=== PATIENT | female | born 1970 | race Caucasian/White ===

== ENCOUNTER 2018-04-24 11:43 | Outpatient (CLI) | payer MEDICAID ==
[2018-04-24 12:56] LABS: CALCIUM 9.1 mg/dL (8.5-10.3); CREATININE 0.6 mg/dL (0.4-1.0)
[2018-04-24 13:35] LABS: FOLLICLE STIMULATING HORMONE 47.84 mIU/mL
[2018-04-24 13:36] LABS: LUTEINIZING HORMONE 32.09 mIU/mL
== END 2018-04-24 11:44 | disposition home or self-care (01) ==
LOC: LAB 11:43
PROVIDERS: ATTEND Obstetrics & Gynecology
DX: N95.1 Menopausal and female climacteric states (principal)
CPT/HCPCS: 36415; 80048; 82670; 83001; 83002

== ENCOUNTER 2018-05-14 11:45 | Emergency (ER) | payer MEDICAID ==
--- NOTE | 2018-05-14 12:56 | XRAY Report ---
Procedure Date: 05/14/2018 Accession Number: [id number] / [id number] Procedure: XR - Hip w/Pelvis 2-3V LT CPT Code: FULL RESULT: EXAM: LEFT HIP AND PELVIS RADIOGRAPHY EXAM DATE: 05/14/2018 12:43 PM. HISTORY: Injury/pain. COMPARISONS: None. TECHNIQUE: 1 view of the pelvis and 1 view of the hip. FINDINGS: Bones: Normal. No fracture or bone lesion. Joints: Mild bilateral femoroacetabular joint space narrowing, greater on the right. Degenerative changes at the pubic symphysis, mild to moderate. Congruent sacroiliac joints. Soft Tissues: Normal. No soft tissue swelling. IMPRESSION: Normal pelvis and hip radiography. [facility]
--- NOTE | 2018-05-14 13:15 | ED Physician Documentation ---
PD HPI LOWER EXT INJURY - Stated complaint Stated Complaint: LEFT HIP PX - Chief complaint Chief Complaint: Ext Problem - History obtained from History obtained from: Patient - History of Present Illness PD HPI LOW EXT INJURY LOCATION: Left, Hip Type of injury: Other (Did the splits when she slipped on a wet floor.) Where injury occurred: Work Timing - onset: How many weeks ago (3) Timing - details: Still present Worsened by: Moving Similar symptoms before: No diagnosis - Treatment prior to arrival Treatment prior to arrival: ibuprophen and lidocaine patch without relief. - Additional information Additional information: The patient is a 47-year-old female who complains of pain in her left hip. She initially developed pain 3 weeks ago when she slipped on a wet floor at work, causing her to do the "splits." She did not fall to the floor. Her pain became worse 2 days ago after moving a large amount of trash. She denies fever , abdominal pain, dysuria, or urinary incontinence. She does report left sciatic pain radiating to her left knee. She reports history of chronic numbness in her right foot, with no acute change. She has been using ibuprofen as well as lidocaine patch (that was prescribed for her ) without relief. Surgical history: Status post left inguinal hernia repair. Review of Systems Constitutional: denies: Fever Nose: denies: Congestion Throat: denies: Sore throat Cardiac: denies: Chest pain / pressure Respiratory: denies: Dyspnea, Cough GI: denies: Abdominal Pain, Nausea, Vomiting : denies: Dysuria Skin: denies: Rash Musculoskeletal: reports: Back pain (left lower back), Joint pain (left hip). denies: Neck pain Neurologic: reports: Numbness (Reports chronically decreased sensation in her right foot, with no recent change.). denies: Focal weakness, Headache PD PAST MEDICAL HISTORY - Past Medical History Cardiovascular: None Respiratory: None Endocrine/Autoimmune: None - Past Surgical History General: Other (Left inguinal hernia repair) - Present Medications Home Medications: Ambulatory Orders Medication Instructions Recorded Confirmed Cyclobenzaprine [Flexeril] 10 mg PO TID PRN #20 tablet 05/14/18 HYDROcod/ACETAM 5/325 [Harwood 5/325] 1 - 2 ea PO Q6H PRN #20 tablet 05/14/18 - Allergies Allergies/Adverse Reactions: Allergies Allergy/AdvReac Type Severity Reaction Status Date / Time No Known Drug Allergies Allergy Verified 05/14/18 11:54 - Social History Does the pt smoke?: No Smoking Status: Never smoker PD ED PE NORMAL - Vitals Vital signs reviewed: Yes (hypertensive) - General General: Alert and oriented X 3, Well developed/nourished - HEENT HEENT: Atraumatic, EOMI, Moist mucous membranes, Pharynx benign - Neck Neck: Supple, no meningeal sign, No adenopathy - Cardiac Cardiac: RRR - Respiratory Respiratory: No respiratory distress, Clear bilaterally - Abdomen Abdomen: Soft, Non tender - Back Back: No CVA TTP, No spinal TTP, Other (There is tenderness to palpation in the left paralumbar musculature, with associated muscle spasms. Tenderness to palpation over the left sacroiliac joint. No tenderness to palpation along the spinous processes.) - Derm Derm: No rash - Extremities Extremities: No edema, No calf tenderness / cord, Other (Straight leg raise is negative bilaterally.) - Neuro Neuro: Alert and oriented X 3, No motor deficit, No sensory deficit, Other ( Deep tendon reflexes are 2+ and equal bilaterally at the patellar and Achilles tendons.) Results - Vitals Vitals: Oxygen O2 Source Room air - Rads (name of study) left hip with pelvis Radiology: Prelim report reviewed, EMP read contemporaneously, See rad report ( Normal left hip and pelvis radiography.) PD MEDICAL DECISION MAKING - ED course Complexity details: reviewed old records, reviewed results, re-evaluated patient , considered differential, d/w patient ED course: The patient's presentation is most consistent with inflammation of the left sacroiliac joint, with associated spasm of the left paralumbar musculature. There is no indication to suggest epidural abscess, cauda equina syndrome, or spinal stenosis. Her exam is not indicative of a hip fracture, and x-ray of the left hip and pelvis reveals no acute bony abnormality. I discussed with the patient the results of her imaging study, symptomatic treatment and outpatient follow-up, as well as potentially worrisome signs or symptoms that should prompt reevaluation in the emergency department. She is being discharged with prescriptions for Flexeril and for Vicodin, 20 tablets. - Sepsis Event Vital Signs: Oxygen O2 Source Room air Departure - Departure Disposition: 01 Home, Self Care Clinical Impression: Derangement of left sacroiliac joint Condition: Stable Instructions: ED Sacroiliitis Follow-Up: Heide Quinonez DNP [Primary Care Provider] - Prescriptions: Cyclobenzaprine [Flexeril] 10 mg PO TID PRN #20 tablet PRN Reason: Spasms HYDROcod/ACETAM 5/325 [Harwood 5/325] 1 - 2 ea PO Q6H PRN #20 tablet PRN Reason: Pain Comments: Apply ice pack to the sore area intermittently for the next 3 days. You can use ibuprofen, up to 800 mg 3 times daily for its anti-inflammatory effect. You can use Flexeril as prescribed if needed for muscle spasms. You can use Vicodin as prescribed if needed for pain. Let pain be your guide to activity level. Follow up with your primary physician within 2 weeks. Call to schedule an appointment. Return to the emergency department if you develop increasing pain, fever, numbness or weakness in your lower extremities, or otherwise worsening symptoms. Discharge Date/Time: 05/14/18 13:40
[2018-05-14 13:40] VITALS: BP 136/71
== END 2018-05-14 13:40 | disposition home or self-care (01) ==
LOC: ED 11:45
DX: M24.80 Other specific joint derangements of unspecified joint, not elsewhere classified (principal); W18.40XA Slipping, tripping and stumbling without falling, unspecified, initial encounter; Y99.0 Civilian activity done for income or pay
CPT/HCPCS: 99283

== ENCOUNTER 2018-06-27 15:21 | Outpatient (CLI) | payer MEDICAID | END 2018-06-27 15:22 | disposition critical access hospital (66) | LOC: EMS 15:21 | PROVIDERS: ATTEND Surgery | DX: S09.90XA Unspecified injury of head, initial encounter (principal); M53.3 Sacrococcygeal disorders, not elsewhere classified; M79.642 Pain in left hand; W17.89XA Other fall from one level to another, initial encounter; Y92.008 Other place in unspecified non-institutional (private) residence as the place of occurrence of the external cause | CPT/HCPCS: A0425; A0429; A0999 ==

== ENCOUNTER 2018-06-27 15:33 | Emergency (ER) | payer MEDICAID ==
[2018-06-27] MEDS ORDERED: oxyCODONE 5 MG TABLET PO STA (16:44)
--- NOTE | 2018-06-27 17:31 | XRAY Report ---
Reason: Fall, with large coccygeal hematoma, low back pain Procedure Date: 06/27/2018 Accession Number: [id number] / [id number] Procedure: XR - Lumbar Spine 2 View CPT Code: FULL RESULT: EXAM: LUMBOSACRAL SPINE RADIOGRAPHY EXAM DATE: 06/27/2018 05:17 PM. CLINICAL HISTORY: Fall, with large coccygeal hematoma, low back pain. COMPARISONS: None. TECHNIQUE: 2 views. FINDINGS: Alignment: Normal. No spondylolisthesis or scoliosis. Bones: Five [id number] lumbar vertebral bodies are present. No acute fracture. There is a chronic appearing fracture deformity at the sacrococcygeal junction. Disks: Mild L5-S1 disk space narrowing. The remaining intervertebral disk spaces are maintained. Facets: No degenerative changes. Sacroiliac Joints: Unremarkable. Soft Tissues: Status post cholecystectomy. IMPRESSION: 1. No lumbar spine fracture or malalignment. 2. Mild L5-S1 degenerative disk space narrowing. 3. Chronic appearing sacrococcygeal fracture deformity. [facility]
--- NOTE | 2018-06-27 17:48 | ED Physician Documentation ---
PD HPI Fall - Stated complaint Stated Complaint: FALL - Chief complaint Chief Complaint: Trauma Ch/Bk - History obtained from History obtained from: Patient, EMS - History of Present Illness Mechanism of injury: Lost balance Fall distance: Standing position Where injury occurred: Home Timing - onset: Today Injury(ies) location: Head, Back, Left Hand Associated symptoms: No: LOC, Neck pain, Nausea / vomiting - Additional information Additional information: The patient is a 48-year-old female who was standing on an wagon and her garden, reaching for a potted plant, when she fell backwards, landing on her buttocks and hitting her head. She denies loss of consciousness. She complains mostly of buttocks pain. She has been ambulatory since the incident occurred. She prefers not to sit because of the pain associated with pressure on her buttocks. Review of Systems Constitutional: denies: Fever Eyes: denies: Decreased vision Nose: denies: Congestion Cardiac: denies: Chest pain / pressure Respiratory: denies: Dyspnea, Cough GI: denies: Abdominal Pain, Nausea, Vomiting : denies: Incontinent Skin: reports: Laceration (s) (scalp). denies: Rash Musculoskeletal: reports: Back pain (lower back/buttock.). denies: Neck pain Neurologic: reports: Head injury. denies: Focal weakness, Numbness, Headache, LOC PD PAST MEDICAL HISTORY - Past Medical History Past Medical History: Yes Cardiovascular: None Respiratory: None Endocrine/Autoimmune: None, HyPOthyroidism - Past Surgical History Past Surgical History: No General: Other - Present Medications Home Medications: Ambulatory Orders Medication Instructions Recorded Confirmed Cyclobenzaprine [Flexeril] 10 mg PO TID PRN #20 tablet 05/14/18 HYDROcod/ACETAM 5/325 [Piqua 5/325] 1 - 2 ea PO Q6H PRN #20 tablet 05/14/18 Furosemide [Lasix] 20 mg PO 06/27/18 Spironolactone 100 mg PO 06/27/18 oxyCODONE/ACET 5/325 [Percocet 5 1 - 2 tab PO Q4-6H PRN #25 tablet 06/27/18 mg/325 mg] - Allergies Allergies/Adverse Reactions: Allergies Allergy/AdvReac Type Severity Reaction Status Date / Time No Known Drug Allergies Allergy Verified 05/14/18 11:54 - Social History Does the pt smoke?: No Smoking Status: Never smoker Does the pt drink ETOH?: Yes Does the pt have substance abuse?: No - Immunizations Immunizations are current?: Yes - POLST Patient has POLST: No PD ED PE NORMAL - Vitals Vital signs reviewed: Yes (borderline hypertension) - General General: Alert and oriented X 3, Well developed/nourished - HEENT HEENT: PERRL, EOMI, Ears normal, Pharynx benign, Other (There is a 2 cm scalp laceration on the right occipital scalp, and an abrasion on the left occipital scalp. There is no bony step-off palpated, and no significant scalp hematoma.) - Neck Neck: No bony TTP, No JVD, Other (Full cervical range of motion, without tenderness.) - Cardiac Cardiac: RRR - Respiratory Respiratory: No respiratory distress, Clear bilaterally - Abdomen Abdomen: Soft, Non tender - Back Back: No CVA TTP, Other (There is tenderness to palpation over the lower back, mostly in the coccygeal region. There is a hematoma over the upper coccygeal, lower lumbar spine.) - Derm Derm: No rash - Extremities Extremities: Normal ROM s pain, Other (There is mild tenderness to palpation over the volar aspect of the left proximal hand with faint ecchymosis at the base of the thenar eminence. She has full range of motion of all digits against resistance. Distal neurovascular is intact.) - Neuro Neuro: Alert and oriented X 3, No motor deficit, No sensory deficit Results - Vitals Vitals: Oxygen O2 Source Room air - Rads (name of study) LS spine Radiology: Prelim report reviewed, EMP read contemporaneously, See rad report (1) No lumbar spine fracture or malalignment. 2) Mild L5-S1 degenerative disc space narrowing. 3) Chronic appearing sacrococcygeal fracture deformity.) Procedures - Laceration (location) scalp Length in cm: 2 Wound type: Stellate, Into subcut fat Neurovascular status: Sensory intact, Motor intact, Vascular intact Anesthesia: Lidocaine 1% with epi Wound Preparation: Hibiclens, Irrigated copiously NS. No: FB identified Skin layer closure: Rutledge Other: Patient tolerated well, No complications, Neurovascular intact, Tetanus UTD Complexity: Simple PD MEDICAL DECISION MAKING - ED course Complexity details: reviewed results, re-evaluated patient, considered differential, d/w patient ED course: The patient's presentation is significant for fall with injuries involving scalp laceration, sacral contusion with hematoma, and contusion to the left hand. X- rays of the lumbar spine reveals no acute fracture or dislocation, but the radiologist notes a chronic appearing coccygeal fracture. An x-ray of the left hand was ordered, but the patient declined to have it performed. Treatment in the emergency department included repair of scalp laceration with florence, after topical anesthetic and thorough cleaning. Oxycodone 1 tablet was administered orally. She is being discharged with prescriptions for Vicodin, 25 tablets. I discussed with her the expected course of injury, symptomatic treatment and outpatient follow-up, as well as potentially worrisome signs or symptoms that should prompt reevaluation in the emergency department. - Sepsis Event Vital Signs: Oxygen O2 Source Room air Departure - Departure Disposition: 01 Home, Self Care Clinical Impression: Fall Qualifiers: Encounter type: initial encounter Qualified Code(s): W19.XXXA - Unspecified fall, initial encounter Scalp laceration Qualifiers: Encounter type: initial encounter Qualified Code(s): S01.01XA - Laceration without foreign body of scalp, initial encounter Hematoma of sacrum Qualifiers: Encounter type: initial encounter Qualified Code(s): S30.0XXA - Contusion of lower back and pelvis, initial encounter Contusion of left hand Qualifiers: Encounter type: initial encounter Qualified Code(s): S60.222A - Contusion of left hand, initial encounter Condition: Stable Instructions: ED Contusion Back, ED Head Injury Closed, ED Laceration Scalp Stitch Or Stap Follow-Up: Heide Quinonez DNP [Primary Care Provider] - Prescriptions: oxyCODONE/ACET 5/325 [Percocet 5 mg/325 mg] 1 - 2 tab PO Q4-6H PRN #25 tablet PRN Reason: Pain Comments: Apply ice pack to the injured areas intermittently for the next 3 days. You can use Percocet as prescribed if needed for pain. You can also use ibuprofen for its anti-inflammatory effect: 800 mg 3 times daily. Follow-up for removal of florence in about 12 days. Return to the emergency department if you develop markedly increasing pain despite the pain medication, any sign of infection, or otherwise worsening symptoms. Forms: Activity restrictions Discharge Date/Time: 06/27/18 18:14
[2018-06-27 18:07] VITALS: BP 151/90
== END 2018-06-27 18:14 | disposition home or self-care (01) ==
LOC: ED 15:33
DX: S01.01XA Laceration without foreign body of scalp, initial encounter (principal); S30.0XXA Contusion of lower back and pelvis, initial encounter; S00.01XA Abrasion of scalp, initial encounter; S60.222A Contusion of left hand, initial encounter; W17.89XA Other fall from one level to another, initial encounter; Y93.H2 Activity, gardening and landscaping; Y92.007 Garden or yard of unspecified non-institutional (private) residence as the place of occurrence of the external cause
CPT/HCPCS: 12001; 72100; 99283; A9270

== ENCOUNTER 2018-07-13 07:39 | Emergency (ER) | payer MEDICAID ==
--- NOTE | 2018-07-13 08:47 | ED Physician Documentation ---
History of Present Illness - Stated complaint Stated Complaint: STAPLE REMOVAL/SLEEPINESS/BACK PX - Chief complaint Chief Complaint: Heent - Additonal information Additional information: hx from pt and EMR 48 female fell 2 feet injuiring low back and striking head s LOC approx 2 weeks ago seen in ED occiptal lac stapled, low back pelvis imaged and no new injuries identified pt back to ED to have staple removed she states she doesnt feel right, she has headaches and is confused she does not think it is due to the percocet she was prescribed she has cirrhoiss but states her amonnia was checked within last few weeks and was fine and dshe does not think it needs to be rechecked today she denies EtOH at time of fall or since she reports balance issues and falls for about a year she has not seen PMD about this Review of Systems Constitutional: denies: Fever, Chills Cardiac: denies: Chest pain / pressure Respiratory: denies: Dyspnea GI: denies: Vomiting : denies: Now EGA (denies s/p hyst) Musculoskeletal: reports: Neck pain, Back pain Neurologic: reports: Headache, Head injury. denies: Focal weakness Endocrine: denies: Easy bruising / bleeding Immunocompromised: denies: Immunocompromised PD PAST MEDICAL HISTORY - Past Medical History Past Medical History: Yes Cardiovascular: None Respiratory: None Endocrine/Autoimmune: None, HyPOthyroidism - Past Surgical History Past Surgical History: No General: Other - Present Medications Home Medications: Ambulatory Orders Medication Instructions Recorded Confirmed Furosemide [Lasix] 40 mg PO BID 06/27/18 07/13/18 Spironolactone 200 mg PO DAILY 06/27/18 07/13/18 Fluoxetine HCl 20 mg PO DAILY 07/13/18 07/13/18 Levothyroxine Sodium 88 mcg PO QDAC 07/13/18 07/13/18 Omeprazole 20 mg PO QDAC 07/13/18 07/13/18 Potassium Chloride [Klor-Con 8] 8 meq PO DAILY 07/13/18 07/13/18 - Allergies Allergies/Adverse Reactions: Allergies Allergy/AdvReac Type Severity Reaction Status Date / Time No Known Drug Allergies Allergy Verified 07/13/18 07:46 - Social History Does the pt smoke?: No Smoking Status: Never smoker Does the pt drink ETOH?: Yes Does the pt have substance abuse?: No - Immunizations Immunizations are current?: Yes - POLST Patient has POLST: No PD ED PE NORMAL - Vitals Vital signs reviewed: Yes - General General: Alert and oriented X 3 - HEENT HEENT: PERRL, Other (3 florence well healed lac) - Neck Neck: No bony TTP - Cardiac Cardiac: RRR - Respiratory Respiratory: No respiratory distress, Clear bilaterally - Extremities Extremities: Other (no hematoma now) - Neuro Neuro: Alert and oriented X 3, client relations associate 2-12 intact, No motor deficit, No sensory deficit, Normal speech, Other (sleept, asks question repetitively - 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 Hip flex knee ext foot dorsi plantar and great toe ext 5/5, neg SLR, no clonus) Eye Opening: Spontaneous Motor: Obeys Commands Verbal: Oriented GCS Score: 15 Results - Vitals Vitals: Vital Signs - 24 hr 07/13/18 07:42 Temperature 35.9 C L Heart Rate 81 Respiratory 17 Rate Blood Pressure 151/66 H O2 Saturation 96 Oxygen O2 Source Room air - Rads (name of study) CTH Radiology: See rad report (no acute) PD MEDICAL DECISION MAKING - ED course ED course: pt smelled of alcohol I asked if she had been drinking and she denied I suggested we check ammonia level and she declined she felt JOHNSON and AMS only since DE I ordered a CT she went out to her car tech went to check on her and found her in her car drinking alcohol from the bottle when she came back i went and talked to her about her EtOH abuse she states she drinks for a variety of reasons mostly due to her chronic pain (she is frustrated because she has moved from [place] and found that local providers are not prescribing pain medications, I suggested she ask for a referral to a production painter) she declines resources such as AA she declines to meet with the she did agree to call for a ride home pt with JOHNSON and AMS after DE GCS 15 and now 2 weeks out would not normally CTH but has liver dz, has not had any liver fup for > 6 months (no INR plt count etc), at risk for subdural - so got CTH all neg pt dced and instructed not to drive Departure - Departure Disposition: 01 Home, Self Care Clinical Impression: Alcohol abuse, Removal of florence Concussion Qualifiers: Encounter type: subsequent encounter Loss of consciousness presence/duration: without LOC Qualified Code(s): S06.0X0D - Concussion without loss of consciousness, subsequent encounter Instructions: ED Concussion Follow-Up: Heide Quinonez DNP [Primary Care Provider] - Comments: Your labs were fine - the ammonia was [address] scan was fine - no skull fracture or brain bleed You need to talk to your primary care doctor about referral to a liver specialist and a pain specialist Avoid alcohol and any medications containing tylenol (such as percocet) Do not drink and drive I recommend you not drive home - you have been drinking and worked all night and are tired and drowsy - please have someone come pick you up - you live close enough to easily walk back and picker and packer the car after you have had some sleep Discharge Date/Time: 07/13/18 11:31
[2018-07-13] MEDS ORDERED: LIDOCAINE PATCH 5% TOP PRN (09:09)
--- NOTE | 2018-07-13 09:53 | CT Report ---
Reason: JOHNSON AMS 2 wk s/p CHI Procedure Date: 07/13/2018 Accession Number: [id number] / [id number] Procedure: CT - Head W/O CPT Code: FULL RESULT: EXAM: CT HEAD EXAM DATE: 07/13/2018 09:32 AM. CLINICAL HISTORY: JOHNSON AMS 2 wk s/p CHI. COMPARISON: None. TECHNIQUE: Multiaxial CT images were obtained from the foramen magnum to the vertex. Reformats: Sagittal and coronal. IV contrast: None. In accordance with CT protocol optimization, one or more of the following dose reduction techniques were utilized for this exam: automated exposure control, adjustment of mA and/or KV based on patient size, or use of iterative reconstructive technique. FINDINGS: Parenchyma: No intraparenchymal hemorrhage. No evidence of mass, midline shift, or CT findings of infarction. Hood-white differentiation is distinct. Extraaxial Spaces: Normal for age. No subdural or epidural collections identified. Ventricles: Normal in size and position. Sinuses and Orbits: Imaged paranasal sinuses, orbits, and mastoids show no significant abnormality. Bones: No evidence of fracture or calvarial defect. Other: None. IMPRESSION: No acute intracranial abnormality. [facility]
[2018-07-13 10:29] LABS: INR 1.1 (0.8-1.2); PT - PROTHROMBIN TIME 12.8 secs (9.9-12.6)
[2018-07-13 11:01] VITALS: BP 140/56
== END 2018-07-13 11:31 | disposition home or self-care (01) ==
LOC: ED 07:39
DX: S01.01XD Laceration without foreign body of scalp, subsequent encounter (principal); S06.0X0D Concussion without loss of consciousness, subsequent encounter; W17.89XD Other fall from one level to another, subsequent encounter; F10.10 Alcohol abuse, uncomplicated; E03.9 Hypothyroidism, unspecified; K76.9 Liver disease, unspecified
CPT/HCPCS: 36415; 70450; 82140; 85049; 85610; 99282; 99283; A9270

== ENCOUNTER 2018-11-25 15:50 | Outpatient (CLI) | payer MEDICAID ==
[2018-11-25 16:21] LABS: BASOPHILS % (AUTO) 0.9 %; EOSINOPHILS % (AUTO) 0.9 %; HGB - HEMOGLOBIN 13.6 g/dL (12.0-16.0); LYMPHOCYTES # (AUTO) 0.7 10^3/uL (1.5-3.5); LYMPHOCYTES % (AUTO) 21.4 %; MEAN CORPUSCULAR HEMOGLOBIN 28.9 pg (27.0-31.0); MEAN CORPUSCULAR HGB CONC 32.7 g/dL (32.0-36.0); MEAN CORPUSCULAR VOLUME 88.3 fL (81.0-99.0); MEAN PLATELET VOLUME 8.2 fL (7.9-10.8); MONOCYTES # (AUTO) 0.4 10^3/uL (0.0-1.0); MONOCYTES % (AUTO) 11.4 %; NEUTROPHILS # (AUTO) 2.1 10^3/uL (1.5-6.6); NEUTROPHILS % (AUTO) 65.4 %; PLT - PLATELET COUNT 142 10^3/uL (130-450); RED CELL DISTRIBUTION WIDTH 16.1 % (12.0-15.0); WHITE BLOOD COUNT 3.2 x10^3/uL (4.8-10.8)
[2018-11-25 16:40] LABS: ALBUMIN/GLOBULIN RATIO 0.9 (1.0-2.2); ALKALINE PHOSPHATASE 112 IU/L (42-121); ALT ALANINE AMINOTRANSFERASE 20 IU/L (10-60); AST ASPARTATE AMINOTRANSFERASE 33 IU/L (10-42); BILIRUBIN,TOTAL 1.5 mg/dL (0.2-1.0); BUN - BLOOD UREA NITROGEN 8 mg/dL (6-20); CALCIUM 9.1 mg/dL (8.5-10.3); CARBON DIOXIDE - CO2 26 mmol/L (21-32); CHLORIDE 99 mmol/L (101-111); CHOL/HDL RATIO 2.3 (<4.4); CHOLESTEROL 154 mg/dL; CREATININE 0.6 mg/dL (0.4-1.0); GFR - MDRD 106 (>89); GLUCOSE 122 mg/dL (70-100); HDL CHOLESTEROL 67 mg/dL; LDL CHOLESTEROL,CALCULATED 76 mg/dL; LDL/HDL RATIO 1.1 (<4.4); SODIUM 135 mmol/L (135-145); TOTAL PROTEIN 8.3 g/dL (6.7-8.2); VLDL CHOLESTEROL 11 mg/dL
[2018-11-25 16:50] LABS: THYROID STIMULATING HORMONE < 0.08 uIU/mL (0.34-5.60)
[2018-11-25 17:01] LABS: FOLATE 14.28 ng/mL (5.90 - >24.8)
== END 2018-11-25 15:51 | disposition home or self-care (01) ==
LOC: LAB 15:50
PROVIDERS: ATTEND Nurse Practitioner
DX: E53.8 Deficiency of other specified B group vitamins (principal); E03.9 Hypothyroidism, unspecified; I10 Essential (primary) hypertension; E55.9 Vitamin D deficiency, unspecified
CPT/HCPCS: 36415; 80053; 80061; 82306; 82607; 82746; 82747; 83721; 84443; 85025

== ENCOUNTER 2019-03-20 12:49 | Emergency (ER) | payer MEDICAID ==
[2019-03-20 12:59] VITALS: BP 150/94
[2019-03-20] MEDS ORDERED: LIDOCAINE-EPINEPH-TETRACAINE 3 ML SYRINGE TOP STA (13:36)
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
== END 2019-03-20 14:29 | disposition home or self-care (01) ==
LOC: ED 12:49
DX: S01.511A Laceration without foreign body of lip, initial encounter (principal); W20.8XXA Other cause of strike by thrown, projected or falling object, initial encounter; Y93.E6 Activity, residential relocation
CPT/HCPCS: 12051; 99282

== ENCOUNTER 2019-03-21 16:44 | Emergency (ER) | payer MEDICAID ==
[2019-03-21] MEDS ORDERED: IBUPROFEN 800 MG TABLET PO STA (17:11)
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
[2019-03-21 18:16] VITALS: BP 150/98
== END 2019-03-21 18:16 | disposition home or self-care (01) ==
LOC: ED 16:44
DX: S00.83XA Contusion of other part of head, initial encounter (principal); S01.511A Laceration without foreign body of lip, initial encounter; Y04.8XXA Assault by other bodily force, initial encounter
CPT/HCPCS: 70486; 99283; A9270

== ENCOUNTER 2019-03-23 15:05 | Emergency (ER) | payer MEDICAID ==
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
[2019-03-23] MEDS ORDERED: HYDROcod/ACETAM 5/325 MG TABLET PO STA (16:54)
[2019-03-23] MEDS ORDERED: MUPIROCIN 2% OINT 1 GM TOP STA (16:54)
[2019-03-23] MEDS ORDERED: cephALEXin 250 MG CAPSULE PO STA (16:54)
[2019-03-23 17:19] VITALS: BP 164/70
== END 2019-03-23 17:19 | disposition home or self-care (01) ==
LOC: ED 15:05
DX: S01.511A Laceration without foreign body of lip, initial encounter (principal); L08.9 Local infection of the skin and subcutaneous tissue, unspecified; Y04.8XXA Assault by other bodily force, initial encounter
CPT/HCPCS: 99283; A9270

== ENCOUNTER 2019-04-01 15:00 | Emergency (ER) | payer MEDICAID ==
[2019-04-01 15:05] VITALS: BP 136/65
--- NOTE | 2019-04-01 15:12 | ED Physician Documentation ---
PD HPI WOUND RECHECK - Stated complaint Stated Complaint: STITCHES REMOVAL - Chief complaint Chief Complaint: Laceration - Histroy obtained from History obtained from: Patient - History of Present Illness Location: Face (right upper lip) Timing - onset: How many days ago (12) Associated symptoms: No: Fever, Redness, Drainage Recently seen: Emergency Dept (12 days ago) Review of Systems Constitutional: denies: Fever, Chills Neurologic: denies: Focal weakness, Numbness PD PAST MEDICAL HISTORY - Past Medical History Cardiovascular: None Respiratory: None Endocrine/Autoimmune: None, HyPOthyroidism Musculoskeletal: Chronic back pain - Past Surgical History Past Surgical History: No General: Other - Present Medications Home Medications: Ambulatory Orders Medication Instructions Recorded Confirmed Furosemide [Lasix] 40 mg PO BID 06/27/18 03/20/19 Spironolactone 200 mg PO DAILY 06/27/18 03/20/19 Fluoxetine HCl 20 mg PO DAILY 07/13/18 03/20/19 Omeprazole 20 mg PO QDAC 07/13/18 03/20/19 Potassium Chloride [Klor-Con 8] 8 meq PO DAILY 07/13/18 03/20/19 Hydrocodone/Acetaminophen 1 - 2 each PO Q6H PRN #10 tablet 03/21/19 [Hydrocodon-Acetaminophen 5-325] Ibuprofen [Motrin] 800 mg PO Q8H PRN #30 tablet 03/21/19 Cephalexin [Keflex] 500 mg PO TID #20 capsule 03/23/19 Hydrocodone/Acetaminophen [[place] 1 each PO Q6H PRN #15 tablet 03/23/19 5-325 Tablet] Mupirocin 1 applic TP TID #15 g 03/23/19 - Allergies Allergies/Adverse Reactions: Allergies Allergy/AdvReac Type Severity Reaction Status Date / Time No Known Drug Allergies Allergy Verified 04/01/19 15:06 - Social History Does the pt smoke?: No Smoking Status: Never smoker Does the pt drink ETOH?: Yes Does the pt have substance abuse?: No - Immunizations Immunizations are current?: Yes - POLST Patient has POLST: No PD ED PE NORMAL - Vitals Vital signs reviewed: Yes - General General: Alert and oriented X 3, No acute distress, Well developed/nourished - HEENT HEENT: Other (Right upper lip has 4 sutures intact without any signs of infection to it. The wound appears well-healing and the vermilion border is good contour. Sutures are removed by me without complications.) Results - Vitals Vitals: Vital Signs - 24 hr 04/01/19 15:02 Temperature 36.5 C Heart Rate 68 Respiratory 16 Rate Blood Pressure 136/65 H O2 Saturation 97 Oxygen O2 Source Room air PD MEDICAL DECISION MAKING - ED course Complexity details: considered differential (Well healing without infection.), d/w patient Departure - Departure Disposition: 01 Home, Self Care Clinical Impression: Encounter for removal of sutures Condition: Stable Record reviewed to determine appropriate education?: Yes
== END 2019-04-01 15:40 | disposition home or self-care (01) ==
LOC: ED 15:00
DX: S01.511D Laceration without foreign body of lip, subsequent encounter (principal); X58.XXXD Exposure to other specified factors, subsequent encounter; Z48.02 Encounter for removal of sutures
CPT/HCPCS: 99281; 99283

== ENCOUNTER 2019-09-14 13:43 | Emergency (ER) | payer SELFPAY ==
--- NOTE | 2019-09-14 15:34 | XRAY Report ---
Reason: fall Procedure Date: 09/14/2019 Accession Number: [id number] / [id number] Procedure: XR - Hip w/Pelvis 2-3V LT CPT Code: Final Report FULL RESULT: EXAM: LEFT HIP RADIOGRAPHY EXAM DATE: 09/14/2019 03:08 PM. CLINICAL HISTORY: Fall. COMPARISON: HIP W/PELVIS 2-3V LT 05/14/2018 12:32 PM. TECHNIQUE: 2 views. FINDINGS: Bones: No acute fracture. No suspicious osseous lesion. Joints: No significant joint space narrowing. No dislocation. Other: None. IMPRESSION: No acute osseous abnormality. RADIA
--- NOTE | 2019-09-14 16:29 | ED Physician Documentation ---
PD HPI LOWER EXT INJURY - Stated complaint Stated Complaint: GLF - Chief complaint Chief Complaint: Ext Problem - History obtained from History obtained from: Patient - History of Present Illness PD HPI LOW EXT INJURY LOCATION: Left, Hip Type of injury: Fall Where injury occurred: Home Timing - onset: How many weeks ago (2) Timing - duration: Weeks (2) Timing - details: Gradual onset Pain level max: 7 Pain level now: 6 Improved by: Rest, Ice Worsened by: Moving, Palpating Associated symptoms: Swelling, Discolored (bruising). No: Weakness, Numbness, Tingling Contributing factors: No: Anticoagulated - Additional information Additional information: 49-year-old female presents to the emergency department after falling on the left hip 2 weeks ago. Review of Systems Constitutional: denies: Fever, Chills Cardiac: denies: Chest pain / pressure Respiratory: denies: Cough GI: denies: Vomiting, Diarrhea Musculoskeletal: denies: Neck pain, Back pain Neurologic: denies: Head injury PD PAST MEDICAL HISTORY - Past Medical History Cardiovascular: None Respiratory: None Endocrine/Autoimmune: None, HyPOthyroidism Musculoskeletal: Chronic back pain - Past Surgical History Past Surgical History: No General: Other - Present Medications Home Medications: Ambulatory Orders Medication Instructions Recorded Confirmed Furosemide [Lasix] 40 mg PO BID 06/27/18 03/20/19 Spironolactone 200 mg PO DAILY 06/27/18 03/20/19 Fluoxetine HCl 20 mg PO DAILY 07/13/18 03/20/19 Omeprazole 20 mg PO QDAC 07/13/18 03/20/19 Potassium Chloride [Klor-Con 8] 8 meq PO DAILY 07/13/18 03/20/19 Hydrocodone/Acetaminophen 1 - 2 each PO Q6H PRN #10 tablet 03/21/19 [Hydrocodon-Acetaminophen 5-325] Ibuprofen [Motrin] 800 mg PO Q8H PRN #30 tablet 03/21/19 Cephalexin [Keflex] 500 mg PO TID #20 capsule 03/23/19 Hydrocodone/Acetaminophen [[place] 1 each PO Q6H PRN #15 tablet 03/23/19 5-325 Tablet] Mupirocin 1 applic TP TID #15 g 03/23/19 Hydrocodone/Acetaminophen 1 - 2 each PO Q6H PRN #14 tablet 09/14/19 [Hydrocodon-Acetaminophen 5-325] - Allergies Allergies/Adverse Reactions: Allergies Allergy/AdvReac Type Severity Reaction Status Date / Time No Known Drug Allergies Allergy Verified 04/01/19 15:06 - Social History Does the pt smoke?: No Smoking Status: Never smoker Does the pt drink ETOH?: Yes Does the pt have substance abuse?: No - Immunizations Immunizations are current?: Yes - POLST Patient has POLST: No PD ED PE NORMAL - Vitals Vital signs reviewed: Yes - General General: Alert and oriented X 3, No acute distress - HEENT HEENT: Moist mucous membranes - Neck Neck: Supple, no meningeal sign - Derm Derm: Warm and dry - Extremities Extremities: No deformity, No tenderness to palpate, Other (Hematoma to the left buttock. Tender to palpation. No deformity.) Results - Vitals Vitals: Vital Signs - 24 hr 09/14/19 09/14/19 14:09 16:32 Temperature 36.7 C Heart Rate 73 64 Respiratory 18 18 Rate Blood Pressure 115/68 136/51 H O2 Saturation 97 100 Oxygen O2 Source Room air - Rads (name of study) L hip xray Radiology: Prelim report reviewed, EMP read contemporaneously, See rad report (Normal) PD MEDICAL DECISION MAKING - ED course Complexity details: reviewed results, re-evaluated patient, considered differential, d/w patient ED course: Patient presents to the emergency department with what appears to be a left buttock hematoma. No evidence of infection. Will compress with Kieran bandages. Will use heat and ice at home. I will prescribe pain medication for home. No acute radiographic findings. Not tender over the bones of the spine, hip, femur. Ambulating well. Patient counseled regarding signs and symptoms for which I believe and urgent re-evaluation would be necessary. Patient with good understanding of and agreement to plan and is comfortable going home at this time This document was made in part using voice recognition software. While efforts are made to proofread this document, sound alike and grammatical errors may occur. Departure - Departure Disposition: 01 Home, Self Care Clinical Impression: Contusion of buttock Qualifiers: Encounter type: initial encounter Qualified Code(s): S30.0XXA - Contusion of lower back and pelvis, initial encounter Condition: Good Instructions: ED Hematoma Follow-Up: your,doctor in 1 week [Other] Prescriptions: Hydrocodone/Acetaminophen [Hydrocodon-Acetaminophen 5-325] 1 - 2 each PO Q6H PRN #14 tablet PRN Reason: pain Comments: Return if you worsen. Follow up with your doctor for further care. Do not drink alcohol or drive while on narcotic pain medicine. Note that many narcotic pain relievers also contain tylenol/acetaminophen. Please ensure that your total dose of acetaminophen from all sources does not exceed 3 grams (3000mg) per day. You may constipated on this medication, take a stool softener such as "Colace" twice a day while you are on it. Also recommend a [id number]-aik-[id number] laxative such as senna or MiraLAX any day that you do not have a bowel movement. If you received narcotic pain medication in the emergency department, do not drive or operate machinery for the next 24 hours. Discharge Date/Time: 09/14/19 16:46
[2019-09-14 16:33] VITALS: BP 136/51
== END 2019-09-14 16:46 | disposition home or self-care (01) ==
LOC: ED 13:43
DX: S30.0XXA Contusion of lower back and pelvis, initial encounter (principal); M25.552 Pain in left hip; W01.0XXA Fall on same level from slipping, tripping and stumbling without subsequent striking against object, initial encounter; Y92.008 Other place in unspecified non-institutional (private) residence as the place of occurrence of the external cause
CPT/HCPCS: 99283; 99284

== ENCOUNTER 2020-04-03 17:08 | Emergency (ER) | payer MEDICAID ==
[2020-04-03] MEDS ORDERED: MECLIZINE 12.5 MG TABLET PO STA (17:28)
--- NOTE | 2020-04-03 17:41 | ED Physician Documentation ---
PD HPI ALTERED MENTAL STATUS - Stated complaint Stated Complaint: DIZZY, SORE THROAT, EAR PAIN - Chief complaint Chief Complaint: Neuro - History obtained from History obtained from: Patient - Additional information Additional information: 49-year-old woman with history of alcoholic cirrhosis presents with dizziness, sore throat and ear pain for the last couple of days. History is somewhat vague because of current intoxication. She admits to drinking "2 beers" prior to arrival. With some prompting she does admit to vertigo. She says she had a couple of years ago and went away on its own but then says at the time she was hospitalized for 4 days on a ventilator. Review of Systems Unable to obtain: Intoxicated PD PAST MEDICAL HISTORY - Past Medical History Past Medical History: Yes Cardiovascular: Murmur Respiratory: COPD Neuro: None Endocrine/Autoimmune: None GI: Cirrhosis ACADEMIC GUIDANCE SPECIALIST: None : None HEENT: None Musculoskeletal: None Derm: None - Past Surgical History Past Surgical History: Yes /ACADEMIC GUIDANCE SPECIALIST: Hysterectomy - Present Medications Home Medications: Ambulatory Orders Medication Instructions Recorded Confirmed Fluoxetine HCl [Prozac] 40 mg PO DAILY 04/03/20 04/03/20 Furosemide [Lasix] 20 mg PO DAILY 04/03/20 04/03/20 Spironolactone 100 mg PO DAILY 04/03/20 04/03/20 - Allergies Allergies/Adverse Reactions: Allergies Allergy/AdvReac Type Severity Reaction Status Date / Time No Known Drug Allergies Allergy Verified 04/03/20 17:26 - Social History Does the pt smoke?: No Smoking Status: Never smoker Does the pt drink ETOH?: Yes ETOH Use: Beer Does the pt have substance abuse?: No - Immunizations Immunizations are current?: Yes - POLST Patient has POLST: No PD ED PE NORMAL - Vitals Vital signs reviewed: Yes - General General: Alert and oriented X 3, Other (Slow slurred speech but alert and oriented) - HEENT HEENT: PERRL, EOMI, Other (Nystagmus horizontally in both directions; TMs And oropharynx appear normal.) - Neck Neck: Supple, no meningeal sign, No bony TTP - Cardiac Cardiac: RRR, No murmur - Respiratory Respiratory: No respiratory distress, Clear bilaterally - Abdomen Abdomen: Soft, Non tender - Back Back: No CVA TTP, No spinal TTP - Derm Derm: Normal color, Warm and dry - Extremities Extremities: No deformity, No tenderness to palpate, No edema, No calf tenderness / cord - Neuro Neuro: Alert and oriented X 3, 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 No asterixis.) Results - Vitals Vitals: Vital Signs - 24 hr 04/03/20 17:23 Temperature 37.4 C Heart Rate 83 Respiratory 10 L Rate Blood Pressure 118/94 H O2 Saturation 100 Oxygen O2 Source Room air - Labs Labs: Laboratory Tests 04/03/20 04/03/20 04/03/20 18:03 18:03 18:03 WBC 3.0 L RBC 5.26 Hgb 15.3 Hct 45.6 MCV 86.7 MCH 29.1 MCHC 33.6 RDW 15.8 H Plt Count 128 L MPV 9.6 Manual Slide Review Indicated PT 14.5 H INR 1.3 H Sodium 135 Potassium 3.3 L Chloride 95 L Carbon Dioxide 27 Anion Gap 13.0 BUN < 5 L Creatinine 0.6 Estimated GFR (MDRD) 106 Glucose 108 H Calcium 8.3 L Total Bilirubin 1.1 H AST 103 H ALT 42 Alkaline Phosphatase 145 H Ammonia Total Protein 8.5 H Albumin 4.3 Globulin 4.2 Albumin/Globulin Ratio 1.0 Lipase 42 Ethyl Alcohol 399.4 Group A Strep Rapid 04/03/20 04/03/20 18:03 18:09 WBC RBC Hgb Hct MCV MCH MCHC RDW Plt Count MPV Manual Slide Review PT INR Sodium Potassium Chloride Carbon Dioxide Anion Gap BUN Creatinine Estimated GFR (MDRD) Glucose Calcium Total Bilirubin AST ALT Alkaline Phosphatase Ammonia 20.0 Total Protein Albumin Globulin Albumin/Globulin Ratio Lipase Ethyl Alcohol Group A Strep Rapid Negative - Rads (name of study) CT Head Radiology: EMP read contemporaneously (NAD) PD MEDICAL DECISION MAKING - ED course ED course: 49-year-old woman presents with nonspecific vertigo. Somewhat a difficult evaluation because of intoxication but no clear neurologic deficits other than t hat caused by alcohol which is corroborated by her blood alcohol of 399 despite only having had "2 [address] of the head was normal. Discussed with her options of staying in the hospital for observation and potential MRI tomorrow if still symptomatic versus going home, not drinking, and returning in the morning if still symptomatic and she opted for the latter. With her permission I also updated the who will come and get her and keep an eye on her tonight. She understands the need to quit drinking. Departure - Departure Disposition: 01 Home, Self Care Clinical Impression: Vertigo Alcohol intoxication Qualifiers: Complication of substance-induced condition: uncomplicated Qualified Code(s): F10.920 - Alcohol use, unspecified with intoxication, uncomplicated Condition: Stable Instructions: ED Alcohol Intoxication, ED Vertigo Unspecified Comments: Cass, you need to abstain from alcohol. Your blood alcohol level today was 399. I doubt that your liver will last more than a couple more years if you do not quit drinking. Return anytime for further evaluation and treatment if worse. Follow-up with your primary care physician. You also need specific alcohol abuse treatment, Options include: [facility] in [place], the phone number is [phone] [facility] [address] in [place], the phone number is [phone].
--- NOTE | 2020-04-03 18:03 | CT Report ---
PROCEDURE: HEAD WO INDICATIONS: vertigo, headache TECHNIQUE: Noncontrast 4.5 mm thick angled axial sections acquired from the foramen magnum to the vertex. For r adiation dose reduction, the following was used: automated exposure control, adjustment of mA and/or kV according to patient size. COMPARISON: None. FINDINGS: Image quality: Excellent. CSF spaces: Basal cisterns are patent. No extra-axial fluid collections. Ventricles are normal in size and shape. Brain: No midline shift. No intracranial masses or hemorrhage. Hood-white matter interface is norm al. Skull and face: Calvarium and visualized facial bones are intact, without suspicious lesions. Sinuses: Visualized sinuses and mastoids are clear. IMPRESSION: No evidence acute stroke, hemorrhage, or mass. Reviewed by: Fercho Valenzuela MD on 04/03/2020 5:01 PM KAREN Approved by: Fercho Valenzuela MD on 04/03/2020 5:01 PM KAREN Station ID: [id number]
[2020-04-03 18:12] LABS: BASOPHILS % (AUTO) 0.7 %; EOSINOPHILS % (AUTO) 0.3 %; HGB - HEMOGLOBIN 15.3 g/dL (12.0-16.0); LYMPHOCYTES % (AUTO) 43.1 %; MEAN CORPUSCULAR HEMOGLOBIN 29.1 pg (27.0-31.0); MEAN CORPUSCULAR HGB CONC 33.6 g/dL (32.0-36.0); MEAN CORPUSCULAR VOLUME 86.7 fL (81.0-99.0); MEAN PLATELET VOLUME 9.6 fL (7.9-10.8); MONOCYTES % (AUTO) 12.4 %; NEUTROPHILS % (AUTO) 43.2 %; PLT - PLATELET COUNT 128 10^3/uL (130-450); RED BLOOD COUNT 5.26 10^6/uL (4.20-5.40); RED CELL DISTRIBUTION WIDTH 15.8 % (12.0-15.0)
[2020-04-03 18:17] LABS: ABNORMAL LYMPHS % (MANUAL) 0 %; BAND NEUTROPHILS % (MANUAL) 0 %
[2020-04-03 18:18] LABS: INR 1.3 (0.8-1.2); PT - PROTHROMBIN TIME 14.5 secs (9.9-12.6)
[2020-04-03 18:23] LABS: RAPID STREP SCREEN Negative (Negative)
[2020-04-03 18:26] LABS: ALBUMIN 4.3 g/dL (3.2-5.5); ALKALINE PHOSPHATASE 145 IU/L (42-121); ALT ALANINE AMINOTRANSFERASE 42 IU/L (10-60); AST ASPARTATE AMINOTRANSFERASE 103 IU/L (10-42); BILIRUBIN,TOTAL 1.1 mg/dL (0.2-1.0); BUN - BLOOD UREA NITROGEN < 5 mg/dL (6-20); CALCIUM 8.3 mg/dL (8.5-10.3); CARBON DIOXIDE - CO2 27 mmol/L (21-32); CHLORIDE 95 mmol/L (101-111); CREATININE 0.6 mg/dL (0.4-1.0); GLUCOSE 108 mg/dL (70-100); LIPASE 42 U/L (22-51); SODIUM 135 mmol/L (135-145); TOTAL PROTEIN 8.5 g/dL (6.7-8.2)
[2020-04-03 18:38] LABS: EOSINOPHILS # (MANUAL) 0.2 10^3/uL (0-0.7); LYMPHOCYTES # (MANUAL) 1.4 10^3/uL (1.5-3.5); LYMPHOCYTES % (MANUAL) 46 %; MONOCYTES # (MANUAL) 0.3 10^3/uL (0.0-1.0)
[2020-04-03 18:39] LABS: DIFFERENTIAL COMMENT MANUAL DIFFERENTIAL; PLATELET ESTIMATE, MANUAL NORMAL (130-450,000) (NORMAL); PLATELET MORPHOLOGY NORMAL APPEARANCE (NORMAL); RBC MORPHOLOGY (MULTIPLE) NORMAL APPEARANCE (NORMAL)
[2020-04-03 18:50] VITALS: BP 125/63
== END 2020-04-03 18:56 | disposition home or self-care (01) ==
LOC: MERGE 17:08 → ED 17:08
DX: R42 Dizziness and giddiness (principal); F10.929 Alcohol use, unspecified with intoxication, unspecified; Y90.8 Blood alcohol level of 240 mg/100 ml or more; K70.30 Alcoholic cirrhosis of liver without ascites; Z11.59 Encounter for screening for other viral diseases
CPT/HCPCS: 36415; 70450; 80053; 80320; 81599; 82140; 83690; 85025; 85610; 87070; 87430; 99281; 99284; A9270

== ENCOUNTER 2020-08-05 15:28 | Outpatient (CLI) | payer MEDICAID ==
[2020-08-05 15:50] LABS: BASOPHILS % (AUTO) 0.7 %; EOSINOPHILS % (AUTO) 0.9 %; HGB - HEMOGLOBIN 14.5 g/dL (12.0-16.0); LYMPHOCYTES # (AUTO) 0.8 10^3/uL (1.5-3.5); LYMPHOCYTES % (AUTO) 19.3 %; MEAN CORPUSCULAR HEMOGLOBIN 29.2 pg (27.0-31.0); MEAN CORPUSCULAR HGB CONC 32.4 g/dL (32.0-36.0); MEAN CORPUSCULAR VOLUME 89.9 fL (81.0-99.0); MEAN PLATELET VOLUME 9.8 fL (7.9-10.8); MONOCYTES # (AUTO) 0.5 10^3/uL (0.0-1.0); MONOCYTES % (AUTO) 11.8 %; NEUTROPHILS # (AUTO) 2.8 10^3/uL (1.5-6.6); NEUTROPHILS % (AUTO) 66.8 %; PLT - PLATELET COUNT 141 10^3/uL (130-450); RED BLOOD COUNT 4.97 10^6/uL (4.20-5.40); RED CELL DISTRIBUTION WIDTH 14.8 % (12.0-15.0); WHITE BLOOD COUNT 4.2 x10^3/uL (4.8-10.8)
[2020-08-05 16:03] LABS: ALBUMIN/GLOBULIN RATIO 0.9 (1.0-2.2); ALKALINE PHOSPHATASE 102 IU/L (42-121); ALT ALANINE AMINOTRANSFERASE 18 IU/L (10-60); AST ASPARTATE AMINOTRANSFERASE 31 IU/L (10-42); BILIRUBIN,TOTAL 1.2 mg/dL (0.2-1.0); BUN - BLOOD UREA NITROGEN 13 mg/dL (6-20); CARBON DIOXIDE - CO2 25 mmol/L (21-32); CHLORIDE 100 mmol/L (101-111); CHOL/HDL RATIO 2.4 (<4.4); CHOLESTEROL 168 mg/dL; CREATININE 0.5 mg/dL (0.4-1.0); GLUCOSE 111 mg/dL (70-100); HDL CHOLESTEROL 69 mg/dL; LDL CHOLESTEROL,CALCULATED 88 mg/dL; LDL/HDL RATIO 1.3 (<4.4); SODIUM 137 mmol/L (135-145); TOTAL PROTEIN 8.3 g/dL (6.7-8.2); VLDL CHOLESTEROL 11 mg/dL
== END 2020-08-05 15:29 | disposition home or self-care (01) ==
LOC: LAB 15:28
PROVIDERS: ATTEND Family Medicine
DX: R73.9 Hyperglycemia, unspecified (principal); E03.9 Hypothyroidism, unspecified; I10 Essential (primary) hypertension; K21.9 Gastro-esophageal reflux disease without esophagitis
CPT/HCPCS: 36415; 80053; 80061; 83721; 84443; 85025

== ENCOUNTER 2020-08-24 13:18 | Emergency (ER) | payer MEDICAID ==
[2020-08-24 13:26] VITALS: BP 103/74
--- NOTE | 2020-08-24 13:35 | ED Physician Documentation ---
PD HPI HEENT - Stated complaint Stated Complaint: TOOTH PX - Chief complaint Chief Complaint: Heent - History obtained from History obtained from: Patient - History of Present Illness Timing - onset: How many weeks ago (2) Timing - duration: Weeks (2) Timing - details: Gradual onset, Still present Location: Tooth Improves: Medication Associated symptoms: No: Fever, Congestion, Rhinorrhea, Trismus Similar symptoms before: Diagnosis (abcessed tooth) Recently seen: Not recently seen - Additional information Additional information: 50 y/o female with an abscessed tooth has right lower jaw pain for the past 2 weeks and this has progressed to more pain and more swelling. There are broken teeth that do not hurt and this tooth is intact, hurts and there is swelling at the gum line. Review of Systems Constitutional: denies: Fever Eyes: denies: Decreased vision Ears: denies: Ear pain Nose: denies: Rhinorrhea / runny nose, Congestion Throat: reports: Dental pain / toothache. denies: Sore throat Cardiac: denies: Chest pain / pressure, Palpitations Respiratory: denies: Dyspnea, Cough GI: denies: Vomiting Skin: denies: Rash PD PAST MEDICAL HISTORY - Past Medical History Cardiovascular: None, Murmur Respiratory: None, COPD Neuro: None Endocrine/Autoimmune: HyPOthyroidism, None GI: Cirrhosis PIPING BLOCKER: None : None HEENT: None Musculoskeletal: None, Chronic back pain Derm: None - Past Surgical History Past Surgical History: Yes General: Other /PIPING BLOCKER: Hysterectomy - Present Medications Home Medications: Ambulatory Orders Medication Instructions Recorded Confirmed Furosemide [Lasix] 40 mg PO BID 06/27/18 03/20/19 Spironolactone 200 mg PO DAILY 06/27/18 03/20/19 Fluoxetine HCl 20 mg PO DAILY 07/13/18 03/20/19 Omeprazole 20 mg PO QDAC 07/13/18 03/20/19 Potassium Chloride [Klor-Con 8] 8 meq PO DAILY 07/13/18 03/20/19 Hydrocodone/Acetaminophen 1 - 2 each PO Q6H PRN #10 tablet 03/21/19 [Hydrocodon-Acetaminophen 5-325] Ibuprofen [Motrin] 800 mg PO Q8H PRN #30 tablet 03/21/19 Cephalexin [Keflex] 500 mg PO TID #20 capsule 03/23/19 Hydrocodone/Acetaminophen [[place] 1 each PO Q6H PRN #15 tablet 03/23/19 5-325 Tablet] Mupirocin 1 applic TP TID #15 g 03/23/19 Hydrocodone/Acetaminophen 1 - 2 each PO Q6H PRN #14 tablet 09/14/19 [Hydrocodon-Acetaminophen 5-325] Fluoxetine HCl [Prozac] 40 mg PO DAILY 04/03/20 04/03/20 Furosemide [Lasix] 20 mg PO DAILY 04/03/20 04/03/20 Spironolactone 100 mg PO DAILY 04/03/20 04/03/20 predniSONE [Deltasone] 20 mg PO [id number] #21 tab 04/30/20 Amoxicillin 875 mg PO BID #14 tablet 08/24/20 Oxycodone HCl/Acetaminophen 1 - 2 each PO Q6H PRN #14 tablet 08/24/20 [Percocet 5-325 mg Tablet] - Allergies Allergies/Adverse Reactions: Allergies Allergy/AdvReac Type Severity Reaction Status Date / Time No Known Drug Allergies Allergy Verified 08/24/20 13:26 - Social History Does the pt smoke?: No Smoking Status: Never smoker Does the pt drink ETOH?: Yes Does the pt have substance abuse?: No - Immunizations Immunizations are current?: Yes - POLST Patient has POLST: No PD ED PE NORMAL - Vitals Vital signs reviewed: Yes (normal ) - General General: Alert and oriented X 3, No acute distress, Well developed/nourished - HEENT HEENT: Atraumatic, PERRL, EOMI, Other (There is a loose tooth on the lower right #28 with some swelling and the gingival margin and in the buccal recess that is firm and without fluctuance. 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 She is placed on amoxicillin and referred to Dr. Mccloud Departure - Departure Disposition: 01 Home, Self Care Clinical Impression: Dental abscess Condition: Stable Instructions: ED Abscess Dental Follow-Up: LAURYN KEATING, MSN, MARKETING COPYWRITER [Primary Care Provider] - Colin Mccloud DDS [Provider Admit Priv/Credential] - Prescriptions: Amoxicillin 875 mg PO BID #14 tablet Oxycodone HCl/Acetaminophen [Percocet 5-325 mg Tablet] 1 - 2 each PO Q6H PRN #14 tablet PRN Reason: pain
== END 2020-08-24 13:57 | disposition home or self-care (01) ==
LOC: ED 13:18
DX: K04.7 Periapical abscess without sinus (principal); R68.84 Jaw pain
CPT/HCPCS: 99282; 99284

== ENCOUNTER 2020-09-20 12:22 | Outpatient (CLI) | payer MEDICAID ==
--- NOTE | 2020-09-28 09:17 | Mammography Report ---
BILATERAL DIGITAL SCREENING MAMMOGRAM 3D/2D: 09/20/2020 CLINICAL: Routine screening. No prior exams were available for comparison. The tissue of both breasts is heterogeneously dense. T his may lower the sensitivity of mammography. There is an oval equal density focal asymmetry with an indistinct margin in the left breast at 10 o'c lock middle depth. No other significant masses, calcifications, or other findings are seen in either breast. IMPRESSION: INCOMPLETE: NEEDS ADDITIONAL IMAGING EVALUATION The oval equal density focal asymmetry in the left breast is indeterminate. Mediolateral and spot co mpression views as well as additional views with possible ultrasound are recommended. This exam was interpreted at Station ID: [id number]. NOTE: For mammograms, a report in lay terms will be sent to the patient. Approximately 15% of breast malignancies will not be visualized mammographically. In the management of a palpable breast mass, a negative mammogram must not discourage biopsy of a clinically suspicious lesion. Electronically Signed By: Hernandez Lazcano M.D. ddp/penrad:09/27/2020 13:50:44 ACR BI-RADS Category 0: Incomplete 3340F PARENCHYMAL PATTERN: (D) - The breast(s) demonstrate(s) heterogeneously dense fibroglandular parenchy ma. BI-RADS CATEGORY: (0) - 0 Mammo and US [id number] Immediate follow-up LATERALITY: (B)
== END 2020-09-20 12:23 | disposition home or self-care (01) ==
LOC: DI 12:22
DX: Z12.31 Encounter for screening mammogram for malignant neoplasm of breast (principal); N64.89 Other specified disorders of breast
CPT/HCPCS: 77067

== ENCOUNTER 2020-09-29 | Emergency (ER) | payer MEDICAID | END 2020-09-29 17:45 | disposition left against medical advice (07) | DX: Z53.21 Procedure and treatment not carried out due to patient leaving prior to being seen by health care provider (principal) ==

== ENCOUNTER 2020-09-29 18:06 | Emergency (ER) | payer MEDICAID ==
--- NOTE | 2020-09-29 19:11 | XRAY Report ---
PROCEDURE: Ankle 3 View RT INDICATIONS: R ankle pain, swelling, no injury TECHNIQUE: 3 views of the ankle were acquired. COMPARISON: None FINDINGS: Bones: No fractures or dislocations. Well-defined plantar and dorsal calcaneal enthesophytes are se en. Ankle mortise is normally aligned. No suspicious bony lesions. Soft tissues: No tibiotalar joint effusion. Achilles tendon appears normal. Vascular calcification s are seen scattered in ankle soft tissue. Diffuse ankle soft tissue swelling is noted. IMPRESSION: No ankle fracture or dislocation. Ankle soft tissue swelling. Reviewed by: Les Zapata MD on 09/29/2020 7:10 PM PST Approved by: Les Zapata MD on 09/29/2020 7:10 PM PST Station ID: [id number]
--- NOTE | 2020-09-29 19:12 | XRAY Report ---
PROCEDURE: Foot 3 View RT INDICATIONS: R foot pain, swelling, no injury TECHNIQUE: 3 views of the foot were acquired. COMPARISON: None FINDINGS: Bones: Likely old healed injury involving third proximal phalangeal base with chronic appearing defor mity. No gross acute right foot fracture or dislocation is seen. Forefoot joint osteophytic changes a re noted. No gross bony erosive changes. Well-defined plantar and dorsal calcaneal enthesophytes are seen. No suspicious bony lesions. Soft tissues: No tibiotalar joint effusion. Achilles tendon appears normal. IMPRESSION: Suggestion of old healed injury involving third proximal phalangeal base. No acute right foot fractur e or dislocation. Forefoot joint osteoarthritis. Reviewed by: Les Zapata MD on 09/29/2020 7:11 PM PST Approved by: Les Zapata MD on 09/29/2020 7:11 PM PST Station ID: [id number]
--- NOTE | 2020-09-29 19:23 | ED Physician Documentation ---
History of Present Illness - Stated complaint Stated Complaint: LEG SWELLING - Chief complaint Chief Complaint: Ext Problem - History obtained from History obtained from: Patient - History of Present Illness Timing: How many days ago (several) Pain level max: 2 Pain level now: 2 - Additonal information Additional information: 50-year-old female presents to the emergency department with right ankle and foot swelling. She states that this started after she got a new job at [employer]. Worse with standing or walking, better with rest. No known injury. She also states that she has a chronic dental abscess in her tooth and she has not yet seen a dentist. She is requesting a refill of antibiotics and pain medication. Review of Systems Constitutional: denies: Fever, Chills Skin: denies: Rash Musculoskeletal: denies: Neck pain, Back pain Neurologic: denies: Headache PD PAST MEDICAL HISTORY - Past Medical History Past Medical History: Yes Cardiovascular: Murmur Respiratory: COPD Neuro: None Endocrine/Autoimmune: HyPOthyroidism GI: Cirrhosis TUBE CUTTER: None : None HEENT: None Musculoskeletal: None, Chronic back pain Derm: None - Past Surgical History Past Surgical History: No General: Other /TUBE CUTTER: Hysterectomy - Present Medications Home Medications: Ambulatory Orders Medication Instructions Recorded Confirmed Furosemide [Lasix] 40 mg PO BID 06/27/18 03/20/19 Spironolactone 200 mg PO DAILY 06/27/18 03/20/19 Fluoxetine HCl 20 mg PO DAILY 07/13/18 03/20/19 Omeprazole 20 mg PO QDAC 07/13/18 03/20/19 Potassium Chloride [Klor-Con 8] 8 meq PO DAILY 07/13/18 03/20/19 Hydrocodone/Acetaminophen 1 - 2 each PO Q6H PRN #10 tablet 03/21/19 [Hydrocodon-Acetaminophen 5-325] Ibuprofen [Motrin] 800 mg PO Q8H PRN #30 tablet 03/21/19 Cephalexin [Keflex] 500 mg PO TID #20 capsule 03/23/19 Hydrocodone/Acetaminophen [[place] 1 each PO Q6H PRN #15 tablet 03/23/19 5-325 Tablet] Mupirocin 1 applic TP TID #15 g 03/23/19 Hydrocodone/Acetaminophen 1 - 2 each PO Q6H PRN #14 tablet 09/14/19 [Hydrocodon-Acetaminophen 5-325] Fluoxetine HCl [Prozac] 40 mg PO DAILY 04/03/20 04/03/20 Furosemide [Lasix] 20 mg PO DAILY 04/03/20 04/03/20 Spironolactone 100 mg PO DAILY 04/03/20 04/03/20 predniSONE [Deltasone] 20 mg PO [id number] #21 tab 04/30/20 Amoxicillin 875 mg PO BID #14 tablet 08/24/20 Oxycodone HCl/Acetaminophen 1 - 2 each PO Q6H PRN #14 tablet 08/24/20 [Percocet 5-325 mg Tablet] HYDROcod/ACETAM 5/325 [[place] 5/325] 1 - 2 ea PO Q6H PRN #8 tablet 09/29/20 Penicillin V Potassium 500 mg PO Q6HR #40 tablet 09/29/20 - Allergies Allergies/Adverse Reactions: Allergies Allergy/AdvReac Type Severity Reaction Status Date / Time No Known Drug Allergies Allergy Verified 09/29/20 18:17 - Social History Does the pt smoke?: No Smoking Status: Never smoker Does the pt drink ETOH?: Yes Does the pt have substance abuse?: No - Immunizations Immunizations are current?: Yes - POLST Patient has POLST: No PD ED PE NORMAL - Vitals Vital signs reviewed: Yes - General General: Alert and oriented X 3, No acute distress - HEENT HEENT: Moist mucous membranes, Other (Poor dentition throughout. No drainable abscess. TTP lower right molar) - Neck Neck: Supple, no meningeal sign - Derm Derm: Warm and dry - Extremities Extremities: Other (Soft tissue swelling about the right ankle and right foot. Diffusely tender. No ecchymosis. No sign of injury) - Neuro Neuro: Alert and oriented X 3 - Psych Psych: Normal mood, Normal affect Results - Vitals Vitals: Vital Signs - 24 hr 09/29/20 09/29/20 18:13 19:59 Temperature 36.6 C 36.5 C Heart Rate 84 75 Respiratory 18 18 Rate Blood Pressure 142/76 H 144/60 H O2 Saturation 99 100 Oxygen O2 Source Room air - Rads (name of study) Right ankle x-ray Radiology: Prelim report reviewed, EMP read contemporaneously, See rad report (STS, no bony abnormality) R foot xray Radiology: Prelim report reviewed, EMP read contemporaneously, See rad report (no acute abnormality. ) PD MEDICAL DECISION MAKING - ED course Complexity details: reviewed old records, reviewed results, re-evaluated patient, considered differential, d/w patient ED course: Patient with what appears to be dependent right lower extremity edema. No evidence of DVT. No calf tenderness. No acute findings on x-ray. Ambulating well. Recommend that she wear socks, preferably compression socks at work. She currently does not wear any socks. She should follow-up with her doctor for further care. We will place her back on antibiotics for her tooth. Recommend that she find a dentist soon. Patient counseled regarding signs and symptoms for which I believe and urgent re-evaluation would be necessary. Patient with good understanding of and agreement to plan and is comfortable going home at this time This document was made in part using voice recognition software. While efforts are made to proofread this document, sound alike and grammatical errors may occur. Departure - Departure Disposition: 01 Home, Self Care Clinical Impression: Peripheral edema, Dental caries Condition: Good Instructions: ED Tooth Pain, ED Leg Swelling Unilateral Follow-Up: Your,doctor in 1 week [Other] Prescriptions: Penicillin V Potassium 500 mg PO Q6HR #40 tablet HYDROcod/ACETAM 5/325 [[place] 5/325] 1 - 2 ea PO Q6H PRN #8 tablet PRN Reason: Pain Comments: You need to call your insurance to find out who you can see for dentistry. It is important that you get your teeth taken care of. You should also be wearing socks that go over your calf to help with the swelling in your legs. Compression socks would be best. Do not drink alcohol or drive while on narcotic pain medicine. Note that many narcotic pain relievers also contain tylenol/acetaminophen. Please ensure that your total dose of acetaminophen from all sources does not exceed 3 grams (3000mg) per day. You may constipated on this medication, take a stool softener such as "Colace" twice a day while you are on it. Also recommend a xctd-cid-rbgqoyt laxative such as senna or MiraLAX any day that you do not have a bowel movement. If you received narcotic pain medication in the emergency department, do not drive or operate machinery for the next 24 hours. Discharge Date/Time: 09/29/20 20:00
[2020-09-29 20:00] VITALS: BP 144/60
== END 2020-09-29 20:00 | disposition home or self-care (01) ==
LOC: ED 18:06
DX: K02.9 Dental caries, unspecified (principal); R60.9 Edema, unspecified
CPT/HCPCS: 99283; 99284

== ENCOUNTER 2020-11-01 11:16 | Outpatient (CLI) | payer MEDICAID ==
--- NOTE | 2020-11-02 14:33 | Mammography Report ---
UNILATERAL LEFT DIGITAL DIAGNOSTIC MAMMOGRAM 3D/2D: 11/01/2020 CLINICAL: Additional evaluation requested from prior study. Short term follow up for the left breast. Comparison is made to exam dated: 09/20/2020 mammogram - [facility]. The tissue o f left breast is heterogeneously dense. This may lower the sensitivity of mammography. There is an oval equal density asymmetry with an indistinct and circumscribed margin in the left melissa st middle depth medial region seen on the craniocaudal view. This is less prominent on additional vie ws. There also is an oval low density asymmetry with an indistinct and circumscribed margin in the left b reast middle depth central to the nipple seen on the mediolateral oblique view. This is slightly less prominent. This finding may correlate to the medial finding above but it is not definitive. No other significant masses or calcifications are seen in the breast. IMPRESSION: INCOMPLETE: NEEDS ADDITIONAL IMAGING EVALUATION The oval equal density asymmetry in the left breast middle depth medial region seen on the craniocaud al view is indeterminate. An ultrasound is recommended. The oval low density asymmetry in the left breast middle depth central to the nipple seen on the medi olateral oblique view is indeterminate and may correlate to the medial finding. An ultrasound is rec ommended. Ultrasound will be performed immediately following the current exam. This exam was interpreted at Station ID: [id number]. NOTE: For mammograms, a report in lay terms will be sent to the patient. Approximately 15% of breast malignancies will not be visualized mammographically. In the management of a palpable breast mass, a negative mammogram must not discourage biopsy of a clinically suspicious lesion. Electronically Signed By: Hernandez Lazcano M.D. ddp/:11/01/2020 12:14:01 ACR BI-RADS Category 0: Incomplete 3340F PARENCHYMAL PATTERN: (D) - The breast(s) demonstrate(s) heterogeneously dense fibroglandular parlita goff. BI-RADS CATEGORY: (0) - 0 Ultrasound [id number] Immediate follow-up LATERALITY: (B)
--- NOTE | 2020-11-02 14:33 | Ultrasound Report ---
LIMITED ULTRASOUND OF LEFT BREAST: 11/01/2020 CLINICAL: Patient returns today to evaluate an asymmetry in left breast. Comparison is made to exams dated: 11/01/2020 mammogram and 09/20/2020 mammogram - [facility]. Color flow and real-time ultrasound of the left breast 2-4 o'clock and 8-10 o'clock regions were per formed on the areas of interest. There are multiple benign appearing lymph nodes in the left breast middle depth in the scanned region s. These lymph nodes are of mixed echogenicity with fatty isela. These likely correlate with the michael mography findings. Color flow imaging demonstrates that there is no increase in vascularity. Otherwi se, no suspicous cystic or solid mass lesions are identified to correlate with the mammographic findi ngs. IMPRESSION: BENIGN There is no sonographic evidence of malignancy. The multiple lymph nodes in the left breast are benign. A 1 year screening mammogram is recommended. This exam was interpreted at Station ID: [id number]. Electronically Signed By: Hernandez Lazcano M.D. ddp/:11/01/2020 12:59:06 Ultrasound BI-RADS: 2 Benign BI-RADS CATEGORY: (2) - 2 RECOMMENDATION: (ANNUAL) - Recommend routine annual screening mammography. [id number] 1 year screening LATERALITY: (B)
== END 2020-11-01 11:17 | disposition home or self-care (01) ==
LOC: DI 11:16
PROVIDERS: ATTEND Nurse Practitioner Family
DX: R92.8 Other abnormal and inconclusive findings on diagnostic imaging of breast (principal)

== ENCOUNTER 2020-11-25 08:05 | Outpatient (CLI) | payer MEDICAID ==
--- NOTE | 2020-11-25 09:37 | Ultrasound Report ---
PROCEDURE: Abdomen Limited PROCEDURE: Abdomen Limited INDICATIONS: ALCOHOLIC CIRRHOSIS TECHNIQUE: Real-time scanning was performed of the abdominal and retroperitoneal organs, with image documentatio n. COMPARISON: None. FINDINGS: Liver: Liver is enlarged with steatosis. There is an overall coarsened appearance of the liver. Gallbladder: The gallbladder has been removed. Biliary ducts: Intrahepatic bile ducts are non-dilated. Extrahepatic bile duct caliber measures 4 m m. Normal is 6-7 mm or less in diameter, or 10 mm or less post-cholecystectomy. Pancreas: Visualized portions of the pancreas are sonographically normal. Spleen: Spleen is normal in size and homogeneous in echotexture. Kidneys: Kidneys are normal in size and echotexture. Right kidney measures 13.1 cm long. No hydron ephrosis or nephrolithiasis. No solid masses. Miscellaneous: No ascites is present. IMPRESSION: 1. Hepatomegaly with steatosis. Coarsened appearance of the liver is present consistent with history of cirrhosis. 2. No ascites. Reviewed by: Stephanie Morillo MD on 11/25/2020 8:36 AM [facility] Approved by: Stephanie Morillo MD on 11/25/2020 8:36 AM [facility] Station ID: [id number]
== END 2020-11-25 08:06 | disposition home or self-care (01) ==
LOC: DI 08:05
PROVIDERS: ATTEND Nurse Practitioner Family
DX: K70.30 Alcoholic cirrhosis of liver without ascites (principal)

== ENCOUNTER 2020-12-02 12:05 | Emergency (ER) | payer MEDICAID ==
[2020-12-02] MEDS ORDERED: HYDROcod/ACETAM 5/325 MG TABLET PO STA (12:45)
[2020-12-02] MEDS ORDERED: cefTRIAXone 1 GM VIAL IM STA (12:45)
[2020-12-02] MEDS ORDERED: LIDOCAINE 1% 2 ML VIAL MC ONE (12:45)
--- NOTE | 2020-12-02 12:46 | ED Physician Documentation ---
PD HPI HEENT - Stated complaint Stated Complaint: TOOTH PX - Chief complaint Chief Complaint: Heent - History obtained from History obtained from: Patient - Additional information Additional information: About a week and a half worth of dental pain from the right mandible. She saw her dentist and they prescribed antibiotics and pain medicines but there was a problem at the pharmacy. No fevers. Review of Systems Constitutional: denies: Fever, Chills Nose: denies: Rhinorrhea / runny nose, Congestion Cardiac: denies: Chest pain / pressure, Palpitations Respiratory: denies: Dyspnea, Cough PD PAST MEDICAL HISTORY - Past Medical History Cardiovascular: Murmur Respiratory: COPD Neuro: None Endocrine/Autoimmune: HyPOthyroidism GI: Cirrhosis SURGICAL ELASTIC KNITTER: None : None HEENT: None Musculoskeletal: None, Chronic back pain Derm: None - Past Surgical History Past Surgical History: No General: Other /SURGICAL ELASTIC KNITTER: Hysterectomy - Present Medications Home Medications: Ambulatory Orders Medication Instructions Recorded Confirmed Furosemide [Lasix] 40 mg PO BID 06/27/18 03/20/19 Spironolactone 200 mg PO DAILY 06/27/18 03/20/19 Fluoxetine HCl 20 mg PO DAILY 07/13/18 03/20/19 Omeprazole 20 mg PO QDAC 07/13/18 03/20/19 Potassium Chloride [Klor-Con 8] 8 meq PO DAILY 07/13/18 03/20/19 Hydrocodone/Acetaminophen 1 - 2 each PO Q6H PRN #10 tablet 03/21/19 [Hydrocodon-Acetaminophen 5-325] Ibuprofen [Motrin] 800 mg PO Q8H PRN #30 tablet 03/21/19 Hydrocodone/Acetaminophen [[place] 1 each PO Q6H PRN #15 tablet 03/23/19 5-325 Tablet] Mupirocin 1 applic TP TID #15 g 03/23/19 cephALEXin [Keflex] 500 mg PO TID #20 capsule 03/23/19 Hydrocodone/Acetaminophen 1 - 2 each PO Q6H PRN #14 tablet 09/14/19 [Hydrocodon-Acetaminophen 5-325] Fluoxetine HCl [Prozac] 40 mg PO DAILY 04/03/20 04/03/20 Furosemide [Lasix] 20 mg PO DAILY 04/03/20 04/03/20 Spironolactone 100 mg PO DAILY 04/03/20 04/03/20 predniSONE [Deltasone] 20 mg PO [id number] #21 tab 04/30/20 Amoxicillin 875 mg PO BID #14 tablet 08/24/20 Oxycodone HCl/Acetaminophen 1 - 2 each PO Q6H PRN #14 tablet 08/24/20 [Percocet 5-325 mg Tablet] HYDROcod/ACETAM 5/325 [[place] 5/325] 1 - 2 ea PO Q6H PRN #8 tablet 09/29/20 Penicillin V Potassium 500 mg PO Q6HR #40 tablet 09/29/20 HYDROcod/ACETAM 5/325 [[place] 5/325] 1 - 2 tab PO Q6H PRN #15 tablet 12/02/20 Penicillin V Potassium 500 mg PO Q6HR #40 tablet 12/02/20 - Allergies Allergies/Adverse Reactions: Allergies Allergy/AdvReac Type Severity Reaction Status Date / Time No Known Drug Allergies Allergy Verified 12/02/20 12:19 - Social History Does the pt smoke?: No Smoking Status: Never smoker Does the pt drink ETOH?: Yes Does the pt have substance abuse?: No - Immunizations Immunizations are current?: Yes - POLST Patient has POLST: No PD ED PE NORMAL - Vitals Vital signs reviewed: Yes - General General: Alert and oriented X 3, No acute distress - HEENT HEENT: Other (Carious down to the gumline to the last mandibular molar on the right without trismus or facial swelling. No sublingual swelling.) - Neck Neck: Supple, no meningeal sign, No bony TTP - Neuro Neuro: Alert and oriented X 3, Normal speech Results - Vitals Vitals: Vital Signs - 24 hr 12/02/20 12:16 Temperature 36.0 C L Heart Rate 79 Respiratory 16 Rate Blood Pressure 150/80 H O2 Saturation 99 Oxygen O2 Source Room air Departure - Departure Disposition: 01 Home, Self Care Clinical Impression: Pain due to dental caries Condition: Good Record reviewed to determine appropriate education?: Yes Instructions: ED Tooth Pain Prescriptions: Penicillin V Potassium 500 mg PO Q6HR #40 tablet HYDROcod/ACETAM 5/325 [[place] 5/325] 1 - 2 tab PO Q6H PRN #15 tablet PRN Reason: Pain Comments: It is very important that you follow-up with a dentist. When it comes to dental problems like yours, the emergency department can only offer a short-term solution to your long-term problem. A couple of low cost options for dental care include: [facility] in [place], calls [phone] for an appointment Or [facility] in [place], call [phone] for an appointment.
[2020-12-02 13:18] VITALS: BP 131/60
== END 2020-12-02 13:18 | disposition home or self-care (01) ==
LOC: ED 12:05
DX: K02.9 Dental caries, unspecified (principal)
CPT/HCPCS: 96372; 99283; A9270

== ENCOUNTER 2021-01-04 | Outpatient (CLI) | payer MEDICAID | END 2021-01-04 20:41 | disposition critical access hospital (66) | DX: R46.4 Slowness and poor responsiveness (principal) | CPT/HCPCS: A0425; A0429; A0999 ==

== ENCOUNTER 2021-01-04 20:51 | Emergency (ER) | payer MEDICAID ==
--- NOTE | 2021-01-04 21:43 | ED Physician Documentation ---
History of Present Illness - Stated complaint Stated Complaint: INGESTION/ETOH S/P RECENT SURGERY - Chief complaint Chief Complaint: General - Additonal information Additional information: 50-year-old female presents the emergency department for evaluation of Concerned that she may have accidentally overdosed. The patient underwent oral surgery yesterday in which 2 teeth removed from her right lower jaw. She does have a history of alcohol abuse as well as cirrhosis. Patient reports to me this evening that she took 2 Percocet as well as drink at least 2 beers. However the volume of Percocet that she took is unclear as both the patient and family at home as well as EMS could not find it. On arrival to the emergency department the patient is alert, well-appearing cooperative and in no apparent distress. Per EMS report 911 was called when the could not enter the bathroom where the patient was at. Patient states to me that she locked the door because she wanted to be left alone however the patient's reports that the patient was found passed out in the bathroom. Patient is quite adamant that she has no thoughts of self-harm or harm to others. She does not desire to be in the emergency department. She denies chest pain, shortness of air, abdominal pain, nausea, vomiting black or bloody stools. Review of Systems Constitutional: denies: Fever, Chills Eyes: reports: Reviewed and negative Ears: reports: Reviewed and negative Nose: reports: Reviewed and negative Throat: reports: Dental pain / toothache (Right lower jaw) Cardiac: reports: Reviewed and negative GI: reports: Reviewed and negative : reports: Reviewed and negative Skin: reports: Rash Musculoskeletal: reports: Reviewed and negative Neurologic: reports: Reviewed and negative PD PAST MEDICAL HISTORY - Past Medical History Past Medical History: Yes Cardiovascular: Murmur Respiratory: COPD Neuro: None Endocrine/Autoimmune: HyPOthyroidism GI: Cirrhosis BOTTOM LINER: None : None HEENT: None Musculoskeletal: None, Chronic back pain Derm: None - Past Surgical History Past Surgical History: No General: Other /BOTTOM LINER: Hysterectomy - Present Medications Home Medications: Ambulatory Orders Medication Instructions Recorded Confirmed Spironolactone 200 mg PO DAILY 06/27/18 12/02/20 Fluoxetine HCl [Prozac] 40 mg PO DAILY 04/03/20 12/02/20 Furosemide [Lasix] 40 mg PO DAILY 04/03/20 12/02/20 buPROPion [Wellbutrin Xl] 0 mg DAILY 12/02/20 12/02/20 - Allergies Allergies/Adverse Reactions: Allergies Allergy/AdvReac Type Severity Reaction Status Date / Time No Known Drug Allergies Allergy Verified 01/04/21 20:58 - Social History Does the pt smoke?: No Smoking Status: Never smoker Does the pt drink ETOH?: Yes Does the pt have substance abuse?: No - Immunizations Immunizations are current?: Yes - POLST Patient has POLST: No PD ED PE EXPANDED - General General: Alert, No acute distress, Well developed/nourished, Other (She does smell of alcohol) - HEENT HEENT: PERRL - Cardiac Cardiac: Regular Rate, Radial strong equal, Cap refill < 2 sec. No: Murmur Present - Respiratory Respiratory: Clear to ausultation raimundo. No: Distress, Labored - Abdomen Abdomen: Normal Bowel sounds. No: Tender to palpation - Extremities Extremities: Normal. No: Deformity, Tenderness - Neuro Neuro: Alert and Oriented X 3, CNII-XII intact, Normal gait, Normal speech - GCS Eye Opening: Spontaneous Motor: Obeys Commands Verbal: Oriented Total: 15 Results - Vitals Vitals: Vital Signs - 24 hr 01/04/21 01/04/21 20:58 21:11 Temperature 37.0 C 37.0 C Heart Rate 77 77 Respiratory 12 12 Rate Blood Pressure 164/99 H 147/83 H O2 Saturation 98 98 Oxygen O2 Source Room air - Labs Labs: Laboratory Tests 01/04/21 01/04/21 21:40 21:40 WBC 3.9 L RBC 5.07 Hgb 14.7 Hct 45.6 MCV 89.9 MCH 29.0 MCHC 32.2 RDW 15.9 H Plt Count 135 MPV 10.2 Neut # (Auto) 2.0 Lymph # (Auto) 1.4 L [place] # (Auto) 0.4 Eos # (Auto) 0.0 Baso # (Auto) 0.0 Absolute Nucleated RBC 0.00 Nucleated RBC % 0.0 Sodium 136 Potassium 4.1 Chloride 100 L Carbon Dioxide 26 Anion Gap 10.0 BUN < 5 L Creatinine 0.6 Estimated GFR (MDRD) 105 Glucose 101 H Calcium 8.6 Total Bilirubin 0.9 AST 55 H ALT 25 Alkaline Phosphatase 96 Total Protein 8.3 H Albumin 3.9 Globulin 4.3 H Albumin/Globulin Ratio 0.9 L Lipase 28 Acetaminophen 21 Ethyl Alcohol 376.8 PD MEDICAL DECISION MAKING - ED course Complexity details: reviewed results, re-evaluated patient, d/w patient ED course: This is a well-appearing 50-year-old female who was brought into the emergency department for concerns of accidental overdose. She does have a history of alcohol abuse and recently had 2 teeth removed in her lower right jaw. She reports to me that she drank 2 beers and took 2 Percocet. She denies that she had thoughts of self-harm or suicidal intent. Patient's reports the patient was passed out on the floor of the bathroom and EMS/police had to break the door down. PT was initially to allow labs draw but then consented. Tylenol level is 21. LO > 300. Pt remains clinically stable, alert and with no focal deficits. Pt will be allowed to metabolize until clinically sober, be reassessed and then likely dc home. Pt is signed out to my [facility] colleage Dr. Ellison to reevaluate patient. Departure - Departure Clinical Impression: History of ETOH abuse, Pain, dental, History of cirrhosis Condition: Stable Record reviewed to determine appropriate education?: Yes Comments: Cass were seen in the emergency department tonight after misusing Percocet and alcohol. It is important that you never use the 2 together doing so could put your life at risk and you could .
[2021-01-04 21:47] LABS: BASOPHILS % (AUTO) 0.5 %; EOSINOPHILS % (AUTO) 0.5 %; HCT - HEMATOCRIT 45.6 % (37.0-47.0); HGB - HEMOGLOBIN 14.7 g/dL (12.0-16.0); LYMPHOCYTES # (AUTO) 1.4 10^3/uL (1.5-3.5); LYMPHOCYTES % (AUTO) 36.4 %; MEAN CORPUSCULAR HGB CONC 32.2 g/dL (32.0-36.0); MEAN CORPUSCULAR VOLUME 89.9 fL (81.0-99.0); MEAN PLATELET VOLUME 10.2 fL (7.9-10.8); MONOCYTES # (AUTO) 0.4 10^3/uL (0.0-1.0); MONOCYTES % (AUTO) 9.4 %; NEUTROPHILS % (AUTO) 52.7 %; PLT - PLATELET COUNT 135 10^3/uL (130-450); RED BLOOD COUNT 5.07 10^6/uL (4.20-5.40); RED CELL DISTRIBUTION WIDTH 15.9 % (12.0-15.0); WHITE BLOOD COUNT 3.9 x10^3/uL (4.8-10.8)
[2021-01-04 22:00] LABS: ACETAMINOPHEN 21 ug/mL (10-30); ALBUMIN 3.9 g/dL (3.2-5.5); ALBUMIN/GLOBULIN RATIO 0.9 (1.0-2.2); ALKALINE PHOSPHATASE 96 IU/L (42-121); ALT ALANINE AMINOTRANSFERASE 25 IU/L (10-60); AST ASPARTATE AMINOTRANSFERASE 55 IU/L (10-42); BILIRUBIN,TOTAL 0.9 mg/dL (0.2-1.0); BUN - BLOOD UREA NITROGEN < 5 mg/dL (6-20); CALCIUM 8.6 mg/dL (8.5-10.3); CARBON DIOXIDE - CO2 26 mmol/L (21-32); CHLORIDE 100 mmol/L (101-111); CREATININE 0.6 mg/dL (0.4-1.0); ETOH - ETHANOL 376.8 mg/dL; GFR - MDRD 105 (>89); GLUCOSE 101 mg/dL (70-100); LIPASE 28 U/L (22-51); POTASSIUM 4.1 mmol/L (3.5-5.0); SODIUM 136 mmol/L (135-145); TOTAL PROTEIN 8.3 g/dL (6.7-8.2)
--- NOTE | 2021-01-04 23:29 | ED Physician Documentation ---
ED Addendum - Addendum Addendum: 01/04/21 23:29 Patient endorsed to me by nurse practitioner Luis awaiting sobriety. Her states that he is able to come get her. She is safe to go home at this time. Strict return precautions given. Educated about alcohol cessation.
[2021-01-05 00:14] VITALS: BP 131/68
== END 2021-01-05 00:06 | disposition home or self-care (01) ==
LOC: EDUNIT# → ED 20:51 → SUPCPDRO 20:51 → ED 01-05 00:06
DX: F10.10 Alcohol abuse, uncomplicated (principal); F11.10 Opioid abuse, uncomplicated; Y90.8 Blood alcohol level of 240 mg/100 ml or more; Z98.818 Other dental procedure status; K08.89 Other specified disorders of teeth and supporting structures; K70.30 Alcoholic cirrhosis of liver without ascites
CPT/HCPCS: 36415; 80053; 80307; 80320; 83690; 85025; 99283

== ENCOUNTER 2021-01-31 13:16 | Emergency (ER) | payer MEDICAID ==
[2021-01-31] MEDS ORDERED: KETOROLAC 30 MG/ML VIAL IVP STA (13:46)
[2021-01-31] MEDS ORDERED: PROMETHAZINE INJ 25 MG in SODIUM CHLORIDE 0.9% 50 ML IV STA (13:46)
[2021-01-31] MEDS ORDERED: diphenhydrAMINE INJ 50 MG/ML VIAL IVP STA (13:46)
[2021-01-31] MEDS ORDERED: SODIUM CHLORIDE 0.9% 1,000 ML IV STA (13:46)
--- NOTE | 2021-01-31 13:49 | ED Physician Documentation ---
PD HPI HEADACHE - Stated complaint Stated Complaint: HEADACHE, "FEELING WEIRD" - Chief complaint Chief Complaint: Neuro - History obtained from History obtained from: Patient - History of Present Illness Timing - onset: Yesterday Timing - onset during: Rest Timing - duration: Days (2) Timing - details: Gradual onset Pain level max: 9 Pain level now: 9 Location: Front, Right Quality: Throbbing, Aching Associated symptoms: Nausea, Vomiting. No: Fever, Stiff neck, Weakness, Numbness, Syncope, Seizure, Eye pain, Vision changes Improved by: Rest, Dark room Worsened by: Light, Noise, Moving Contributing factors: No: Anticoagulated, Possible carbon monoxide, Hypertension, Recent illness, Trauma - Additional information Additional information: patient with a gradual onset headache x 2 day. Taking motrin and tylenol without relief. Review of Systems Ten Systems: 10 systems reviewed and negative Constitutional: denies: Fever, Chills Nose: denies: Rhinorrhea / runny nose, Congestion GI: reports: Nausea, Vomiting. denies: Hematemesis, Bloody / black stool : denies: Dysuria Skin: denies: Rash Musculoskeletal: denies: Neck pain, Back pain Neurologic: denies: Generalized weakness, Focal weakness, Numbness, Seizure, Confused, Head injury, LOC PD PAST MEDICAL HISTORY - Past Medical History Cardiovascular: Murmur Respiratory: COPD Neuro: None Endocrine/Autoimmune: HyPOthyroidism GI: Cirrhosis STUDENT SERVICES DEAN: None : None HEENT: None Musculoskeletal: None, Chronic back pain Derm: None - Past Surgical History Past Surgical History: No General: Other /STUDENT SERVICES DEAN: Hysterectomy - Present Medications Home Medications: Ambulatory Orders Medication Instructions Recorded Confirmed Spironolactone 200 mg PO DAILY 06/27/18 12/02/20 Fluoxetine HCl [Prozac] 40 mg PO DAILY 04/03/20 12/02/20 Furosemide [Lasix] 40 mg PO DAILY 04/03/20 12/02/20 buPROPion [Wellbutrin Xl] 0 mg DAILY 12/02/20 12/02/20 - Allergies Allergies/Adverse Reactions: Allergies Allergy/AdvReac Type Severity Reaction Status Date / Time No Known Drug Allergies Allergy Verified 01/31/21 13:35 - Social History Does the pt smoke?: No Smoking Status: Never smoker Does the pt drink ETOH?: Yes Does the pt have substance abuse?: No - Immunizations Immunizations are current?: Yes - POLST Patient has POLST: No PD ED PE NORMAL - Vitals Vital signs reviewed: Yes - General General: Alert and oriented X 3, No acute distress - HEENT HEENT: Atraumatic, PERRL, EOMI, Ears normal, Moist mucous membranes, Pharynx benign - Neck Neck: Supple, no meningeal sign - Cardiac Cardiac: RRR, Strong equal pulses - Respiratory Respiratory: No respiratory distress, Clear bilaterally - Abdomen Abdomen: Soft, Non tender, Non distended - Back Back: No spinal TTP - Derm Derm: Warm and dry - Extremities Extremities: No edema, No calf tenderness / cord - Neuro Neuro: Alert and oriented X 3, supervisor of research 2-12 intact, No motor deficit, No sensory deficit, Normal speech Eye Opening: Spontaneous Motor: Obeys Commands Verbal: Oriented GCS Score: 15 - Psych Psych: Normal mood, Normal affect Results - Vitals Vitals: Vital Signs - 24 hr 01/31/21 01/31/21 13:31 15:42 Temperature 36.5 C 36.9 C Heart Rate 69 60 Respiratory 18 18 Rate Blood Pressure 140/67 H 136/70 H O2 Saturation 99 94 Oxygen O2 Source Room air - Labs Labs: Laboratory Tests 01/31/21 01/31/21 01/31/21 14:10 14:10 14:10 WBC 2.5 L RBC 4.78 Hgb 14.0 Hct 43.1 MCV 90.2 MCH 29.3 MCHC 32.5 RDW 16.0 H Plt Count 110 L MPV 9.4 Neut # (Auto) Not Reportable Lymph # (Auto) Not Reportable [place] # (Auto) Not Reportable Eos # (Auto) Not Reportable Baso # (Auto) Not Reportable Absolute Nucleated RBC Not Reportable Total Counted 100 Band Neuts % (Manual) 1 Abnorm Lymph % (Manual) 0 Nucleated RBC % Not Reportable Neutrophils # (Manual) 1.1 L Lymphocytes # (Manual) 1.3 L Monocytes # (Manual) 0.1 Eosinophils # (Manual) 0.0 Basophils # (Manual) 0.0 Differential Comment MANUAL DIFFERENTIAL Manual Slide Review Indicated WBC Morphology NORMAL APPEARANCE Platelet Estimate DECREASED (<130,000) Platelet Morphology NORMAL APPEARANCE RBC Morph Micro Appear NORMAL APPEARANCE PT 13.3 H INR 1.2 Sodium 145 Potassium 3.9 Chloride 104 Carbon Dioxide 30 Anion Gap 11.0 BUN < 5 L Creatinine 0.5 Estimated GFR (MDRD) 130 Glucose 111 H Calcium 9.1 Total Bilirubin 0.8 AST 66 H ALT 29 Alkaline Phosphatase 114 Total Protein 8.3 H Albumin 3.9 Globulin 4.4 H Albumin/Globulin Ratio 0.9 L Ethyl Alcohol 383.8 - Rads (name of study) head CT Radiology: Prelim report reviewed, EMP read contemporaneously, See rad report (no acute abnormality.) PD MEDICAL DECISION MAKING - ED course Complexity details: reviewed results, re-evaluated patient, considered differential, d/w patient ED course: 50-year-old female presents to the emergency department with a headache. She is intoxicated in the emergency department. No acute findings on head CT. Given IV fluids, Toradol, Benadryl, Phenergan. Patient slept in the emergency department and headache resolved. No evidence of subarachnoid hemorrhage, tumor, mass. We will continue supportive care and have her follow-up with her doctor. Counseled to stop drinking. Patient does not want rehab. This document was made in part using voice recognition software. While efforts are made to proofread this document, sound alike and grammatical errors may occur. Departure - Departure Disposition: Home, Self Care Clinical Impression: Alcohol intoxication Qualifiers: Complication of substance-induced condition: uncomplicated Qualified Code(s): F10.920 - Alcohol use, unspecified with intoxication, uncomplicated Headache Qualifiers: Headache type: unspecified Headache chronicity pattern: acute headache Intractability: not intractable Qualified Code(s): R51.9 - Headache, unspecified Condition: Good Instructions: ED Alcohol Intoxication, ED Headache Migraine Follow-Up: LAURYN KEATING, MSN, STOCK WORKER [Primary Care Provider] - Within 1 week Comments: Follow up with your doctor for further care. Your testing does not show any acute abnormalities here. Your blood alcohol is 0.38. This is almost 5 times the legal limit. You should not be driving. Return if you worsen Discharge Date/Time: 01/31/21 15:53
--- NOTE | 2021-01-31 14:11 | CT Report ---
PROCEDURE: HEAD WO INDICATIONS: headache TECHNIQUE: Noncontrast 4.5 mm thick angled axial sections acquired from the foramen magnum to the vertex. For r adiation dose reduction, the following was used: automated exposure control, adjustment of mA and/or kV according to patient size. COMPARISON: CT head 07/13/2018 FINDINGS: Image quality: Excellent. CSF spaces: Basal cisterns are patent. No extra-axial fluid collections. Ventricles are normal in size and shape. Brain: No midline shift. No intracranial masses or hemorrhage. Hood-white matter interface is norm al. Skull and face: Calvarium and visualized facial bones are intact, without suspicious lesions. Sinuses: Visualized sinuses and mastoids are clear. IMPRESSION: 1. No acute intracranial process. Reviewed by: Stephanie Morillo MD on 01/31/2021 2:09 PM PDT Approved by: Stephanie Morillo MD on 01/31/2021 2:09 PM PDT Station ID: [id number]
[2021-01-31 14:22] LABS: BASOPHILS % (AUTO) 0.8 %; EOSINOPHILS % (AUTO) 0.8 %; HCT - HEMATOCRIT 43.1 % (37.0-47.0); LYMPHOCYTES % (AUTO) 43.1 %; MEAN CORPUSCULAR HEMOGLOBIN 29.3 pg (27.0-31.0); MEAN CORPUSCULAR HGB CONC 32.5 g/dL (32.0-36.0); MEAN CORPUSCULAR VOLUME 90.2 fL (81.0-99.0); MEAN PLATELET VOLUME 9.4 fL (7.9-10.8); MONOCYTES % (AUTO) 13.7 %; NEUTROPHILS % (AUTO) 40.8 %; PLT - PLATELET COUNT 110 10^3/uL (130-450); RED BLOOD COUNT 4.78 10^6/uL (4.20-5.40); WHITE BLOOD COUNT 2.5 x10^3/uL (4.8-10.8)
[2021-01-31 14:23] LABS: SLIDE REVIEW? Indicated
[2021-01-31 14:26] LABS: INR 1.2 (0.8-1.2); PT - PROTHROMBIN TIME 13.3 secs (9.9-12.6)
[2021-01-31 14:33] LABS: ABNORMAL LYMPHS % (MANUAL) 0 %
[2021-01-31 14:35] LABS: ALBUMIN 3.9 g/dL (3.2-5.5); ALBUMIN/GLOBULIN RATIO 0.9 (1.0-2.2); ALKALINE PHOSPHATASE 114 IU/L (42-121); ALT ALANINE AMINOTRANSFERASE 29 IU/L (10-60); AST ASPARTATE AMINOTRANSFERASE 66 IU/L (10-42); BILIRUBIN,TOTAL 0.8 mg/dL (0.2-1.0); BUN - BLOOD UREA NITROGEN < 5 mg/dL (6-20); CALCIUM 9.1 mg/dL (8.5-10.3); CARBON DIOXIDE - CO2 30 mmol/L (21-32); CHLORIDE 104 mmol/L (101-111); CREATININE 0.5 mg/dL (0.4-1.0); ETOH - ETHANOL 383.8 mg/dL; GFR - MDRD 130 (>89); GLUCOSE 111 mg/dL (70-100); POTASSIUM 3.9 mmol/L (3.5-5.0); SODIUM 145 mmol/L (135-145); TOTAL PROTEIN 8.3 g/dL (6.7-8.2)
[2021-01-31 14:41] LABS: BAND NEUTROPHILS % (MANUAL) 1 %; BASOPHILS % (MANUAL) 1 %; LYMPHOCYTES # (MANUAL) 1.3 10^3/uL (1.5-3.5); LYMPHOCYTES % (MANUAL) 50 %; MONOCYTES # (MANUAL) 0.1 10^3/uL (0.0-1.0); NEUTROPHILS # (MANUAL) 1.1 10^3/uL (1.5-6.6)
[2021-01-31 14:42] LABS: DIFFERENTIAL COMMENT MANUAL DIFFERENTIAL; PLATELET ESTIMATE, MANUAL DECREASED (<130,000) (NORMAL); PLATELET MORPHOLOGY NORMAL APPEARANCE (NORMAL); RBC MORPHOLOGY (MULTIPLE) NORMAL APPEARANCE (NORMAL); WBC MORPHOLOGY (MULTIPLE) NORMAL APPEARANCE (NORMAL)
[2021-01-31 15:42] VITALS: BP 136/70
== END 2021-01-31 15:53 | disposition home or self-care (01) ==
LOC: ED 13:16
DX: F10.920 Alcohol use, unspecified with intoxication, uncomplicated (principal); R51.9 Headache, unspecified
CPT/HCPCS: 36415; 70450; 80053; 80320; 85025; 85610; 96365; 96375; 99284; J1200; J7040

== ENCOUNTER 2021-02-24 17:47 | Emergency (ER) | payer MEDICAID ==
[2021-02-24 18:04] VITALS: BP 114/72
--- NOTE | 2021-02-24 18:26 | ED Physician Documentation ---
PD HPI UPPER EXT INJURY - Stated complaint Stated Complaint: RIGHT LEG PX - Chief complaint Chief Complaint: Ext Problem - History obtained from History obtained from: Patient - Additonal information Additional information: 8 days postop from vein stripping. Today her foot was white and she presents for evaluation of arterial flow. Pain is controlled. 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 : None HEENT: None Musculoskeletal: None, Chronic back pain Derm: None - Past Surgical History Past Surgical History: No General: Other /NOVELTY TWISTER TENDER: Hysterectomy - Present Medications Home Medications: Ambulatory Orders Medication Instructions Recorded Confirmed Spironolactone 200 mg PO DAILY 06/27/18 12/02/20 Fluoxetine HCl [Prozac] 40 mg PO DAILY 04/03/20 12/02/20 Furosemide [Lasix] 40 mg PO DAILY 04/03/20 12/02/20 buPROPion [Wellbutrin Xl] 0 mg DAILY 12/02/20 12/02/20 - Allergies Allergies/Adverse Reactions: Allergies Allergy/AdvReac Type Severity Reaction Status Date / Time No Known Drug Allergies Allergy Verified 02/24/21 18:03 - Social History Does the pt smoke?: No Smoking Status: Never smoker Does the pt drink ETOH?: Yes Does the pt have substance abuse?: No - Immunizations Immunizations are current?: Yes - POLST Patient has POLST: No PD ED PE NORMAL - Vitals Vital signs reviewed: Yes - General General: Alert and oriented X 3, No acute distress - HEENT HEENT: PERRL, EOMI - Neck Neck: Supple, no meningeal sign, No bony TTP - Derm Derm: Normal color, Warm and dry - Extremities Extremities: Other (She had an Kieran wrap on her leg. Surgical incisions are clean dry and intact without signs of infection. There is some bruising of the calf. Her pedal pulses are normal. She notes she had a Doppler ultrasound to assess her veins and Cecil a few days ago and it was negative.) - Neuro Neuro: Alert and oriented X 3, Normal speech Results - Vitals Vitals: Vital Signs - 24 hr 02/24/21 17:59 Temperature 36.6 C Heart Rate 73 Respiratory 16 Rate Blood Pressure 114/72 O2 Saturation 98 Oxygen O2 Source Room air PD MEDICAL DECISION MAKING - ED course ED course: 50-year-old woman presents with concern for arterial insufficiency of the right leg after a venous surgery. There is no clinical evidence of this. She did ask for postoperative pain medications. She has ongoing severe alcohol abuse and as such I discussed with her the risks of that were not worth the benefits. Unfortunately patient was witnessed by hospital staff driving away from the hospital on her own recognizance despite being potentially intoxicated but also having had told the nurse that she had someone else driving and was given oxycodone here. Departure - Departure Disposition: 01 Home, Self Care Clinical Impression: Right leg swelling, History of ETOH abuse Condition: Good Record reviewed to determine appropriate education?: Yes Comments: No evidence of blood flow issue in the right leg at this time. Return if worsening. Follow-up with your surgeon as scheduled. Elevate is much as possible. Discharge Date/Time: 02/24/21 18:49
[2021-02-24] MEDS ORDERED: oxyCODONE 5 MG TABLET PO STA (18:40)
== END 2021-02-24 18:49 | disposition home or self-care (01) ==
LOC: ED 17:47
DX: R22.41 Localized swelling, mass and lump, right lower limb (principal); Z98.890 Other specified postprocedural states; F10.10 Alcohol abuse, uncomplicated
CPT/HCPCS: 99282; 99283; A9270

== ENCOUNTER 2021-03-23 15:18 | Outpatient (CLI) | payer MEDICAID ==
--- NOTE | 2021-03-23 15:39 | XRAY Report ---
PROCEDURE: Hip w/Pelvis 2-3V LT INDICATIONS: CHRONIC LEFT HIP PAIN TECHNIQUE: AP pelvis with lateral view(s) of the left hip(s). COMPARISON: None. FINDINGS: Bones: No fractures or dislocations. Mild bilateral hip joint osteoarthritic changes are seen slight ly worse on the left side. No evidence of avascular necrosis of femoral head. Pelvic ring appears int act. No suspicious bony lesions. Soft tissues: The visualized bowel gas pattern is normal. No suspicious soft tissue calcifications. IMPRESSION: Left worse than right bilateral hip joint osteoarthritis. No fracture or dislocation. No evidence of avascular necrosis. Reviewed by: Les Zapata MD on 03/23/2021 3:37 PM PDT Approved by: Les Zapata MD on 03/23/2021 3:37 PM PDT Station ID: [id number]
== END 2021-03-23 15:19 | disposition home or self-care (01) ==
LOC: DI 15:18
PROVIDERS: ATTEND Nurse Practitioner Family
DX: M25.552 Pain in left hip (principal); G89.29 Other chronic pain; M16.0 Bilateral primary osteoarthritis of hip; D70.9 Neutropenia, unspecified; K70.30 Alcoholic cirrhosis of liver without ascites
CPT/HCPCS: 36415; 80053; 85025

== ENCOUNTER 2021-03-23 15:28 | Outpatient (CLI) | payer MEDICAID ==
[2021-03-23 15:53] LABS: BASOPHILS % (AUTO) 0.9 %; EOSINOPHILS % (AUTO) 1.2 %; HCT - HEMATOCRIT 41.5 % (37.0-47.0); HGB - HEMOGLOBIN 13.5 g/dL (12.0-16.0); LYMPHOCYTES # (AUTO) 0.9 10^3/uL (1.5-3.5); LYMPHOCYTES % (AUTO) 27.3 %; MEAN CORPUSCULAR HEMOGLOBIN 29.1 pg (27.0-31.0); MEAN CORPUSCULAR HGB CONC 32.5 g/dL (32.0-36.0); MEAN CORPUSCULAR VOLUME 89.4 fL (81.0-99.0); MEAN PLATELET VOLUME 9.7 fL (7.9-10.8); MONOCYTES # (AUTO) 0.5 10^3/uL (0.0-1.0); MONOCYTES % (AUTO) 14.5 %; NEUTROPHILS # (AUTO) 1.8 10^3/uL (1.5-6.6); NEUTROPHILS % (AUTO) 55.5 %; PLT - PLATELET COUNT 157 10^3/uL (130-450); RED BLOOD COUNT 4.64 10^6/uL (4.20-5.40); RED CELL DISTRIBUTION WIDTH 15.4 % (12.0-15.0); WHITE BLOOD COUNT 3.3 x10^3/uL (4.8-10.8)
[2021-03-23 16:06] LABS: ALBUMIN 3.8 g/dL (3.2-5.5); ALBUMIN/GLOBULIN RATIO 0.8 (1.0-2.2); BILIRUBIN,TOTAL 0.7 mg/dL (0.2-1.0); CALCIUM 9.1 mg/dL (8.5-10.3); CREATININE 0.5 mg/dL (0.4-1.0); POTASSIUM 3.8 mmol/L (3.5-5.0); TOTAL PROTEIN 8.3 g/dL (6.7-8.2)
== END 2021-03-23 15:29 | disposition home or self-care (01) ==
LOC: LAB 15:28
PROVIDERS: ATTEND Nurse Practitioner Family
DX: D70.9 Neutropenia, unspecified (principal); K70.30 Alcoholic cirrhosis of liver without ascites
CPT/HCPCS: 36415; 80053; 85025

== ENCOUNTER 2021-05-01 11:00 | Outpatient (CLI) | payer MEDICAID ==
--- NOTE | 2021-05-01 14:07 | XRAY Report ---
PROCEDURE: Hip w/Pelvis 1V LT INDICATIONS: ARTHRITIS, L HIP TECHNIQUE: AP pelvis with lateral view(s) of the left hip(s). COMPARISON: 03/23/2021 FINDINGS: Bones: Stable bilateral moderate to joint space narrowing greater on the left remains unchanged from the prior exam. Femoral head has been appropriate to contour. Soft tissues: The visualized bowel gas pattern is normal. No suspicious soft tissue calcifications. IMPRESSION: Bilateral hip osteoarthritis, stable from prior exam. Reviewed by: Son Morton MD on 05/01/2021 1:05 PM AKDT Approved by: Son Morton MD on 05/01/2021 1:05 PM AKDT Station ID: [id number]
== END 2021-05-01 23:59 | disposition home or self-care (01) ==
LOC: DI.N 11:00
PROVIDERS: ATTEND Orthopaedic Surgery
DX: M16.0 Bilateral primary osteoarthritis of hip (principal)

== ENCOUNTER 2021-05-25 15:42 | Outpatient (CLI) | payer MEDICAID | END 2021-05-25 15:43 | disposition home or self-care (01) | LOC: COV 15:42 | PROVIDERS: ATTEND Family Medicine | DX: R05 Cough (principal); R06.02 Shortness of breath; M79.10 Myalgia, unspecified site; R53.83 Other fatigue; R68.83 Chills (without fever); R07.0 Pain in throat; R19.7 Diarrhea, unspecified; Z20.822 Contact with and (suspected) exposure to COVID-19 ==

== ENCOUNTER 2021-06-07 15:21 | Emergency (ER) | payer MEDICAID ==
[2021-06-07 15:48] VITALS: BP 127/70
== END 2021-06-07 15:54 | disposition left against medical advice (07) ==
LOC: ED 15:21
DX: Z53.21 Procedure and treatment not carried out due to patient leaving prior to being seen by health care provider (principal)

== ENCOUNTER 2021-09-11 10:23 | Outpatient (CLI) | payer MEDICAID ==
[2021-09-11 17:53] LABS: BILIRUBIN,URINE NEGATIVE (NEGATIVE); GLUCOSE, URINE (UA) NEGATIVE (NEGATIVE); KETONES,URINE (UA) NEGATIVE (NEGATIVE); LEUKOCYTE ESTERASE, URINE NEGATIVE (NEGATIVE); NITRITE,URINE NEGATIVE (NEGATIVE); OCCULT BLOOD,URINE NEGATIVE (NEGATIVE); PROTEIN,URINE NEGATIVE (NEGATIVE); UROBILINOGEN,URINE 0.2 (NORMAL) E.U./dL (NORMAL)
[2021-09-11 18:01] LABS: BACTERIA,URINE Few /HPF (None Seen); CLARITY,URINE CLEAR (CLEAR); RBC,URINE None Seen /HPF (0-5); SQUAMOUS EPITHELIAL CELL,UR MOD Squamous (<= Few); WBC,URINE 0-3 /HPF (0-5)
[2021-09-11 18:15] LABS: BASOPHILS % (AUTO) 0.7 %; EOSINOPHILS # (AUTO) 0.1 10^3/uL (0.0-0.7); EOSINOPHILS % (AUTO) 1.9 %; HCT - HEMATOCRIT 41.8 % (37.0-47.0); HGB - HEMOGLOBIN 13.3 g/dL (12.0-16.0); LYMPHOCYTES # (AUTO) 0.8 10^3/uL (1.5-3.5); LYMPHOCYTES % (AUTO) 18.1 %; MEAN CORPUSCULAR HEMOGLOBIN 27.9 pg (27.0-31.0); MEAN CORPUSCULAR HGB CONC 31.8 g/dL (32.0-36.0); MEAN CORPUSCULAR VOLUME 87.6 fL (81.0-99.0); MEAN PLATELET VOLUME 12.6 fL (7.9-10.8); MONOCYTES # (AUTO) 0.4 10^3/uL (0.0-1.0); MONOCYTES % (AUTO) 9.5 %; NEUTROPHILS # (AUTO) 2.9 10^3/uL (1.5-6.6); NEUTROPHILS % (AUTO) 69.6 %; PLT - PLATELET COUNT 166 10^3/uL (130-450); RED BLOOD COUNT 4.77 10^6/uL (4.20-5.40); RED CELL DISTRIBUTION WIDTH 15.5 % (12.0-15.0); WHITE BLOOD COUNT 4.2 x10^3/uL (4.8-10.8)
[2021-09-11 18:35] LABS: ALBUMIN 3.7 g/dL (3.2-5.5); ALBUMIN/GLOBULIN RATIO 0.9 (1.0-2.2); ALKALINE PHOSPHATASE 81 IU/L (42-121); ALT ALANINE AMINOTRANSFERASE 13 IU/L (10-60); AST ASPARTATE AMINOTRANSFERASE 19 IU/L (10-42); BILIRUBIN,TOTAL 0.7 mg/dL (0.2-1.0); BUN - BLOOD UREA NITROGEN 5 mg/dL (6-20); CALCIUM 8.9 mg/dL (8.5-10.3); CARBON DIOXIDE - CO2 28 mmol/L (21-32); CHLORIDE 102 mmol/L (101-111); CHOL/HDL RATIO 2.9 (<4.4); CHOLESTEROL 162 mg/dL; CREATININE 0.7 mg/dL (0.4-1.0); GFR - MDRD 88 (>89); GLUCOSE 119 mg/dL (70-100); HDL CHOLESTEROL 56 mg/dL; LDL CHOLESTEROL,CALCULATED 95 mg/dL; LDL/HDL RATIO 1.7 (<4.4); POTASSIUM 3.3 mmol/L (3.5-5.0); SODIUM 139 mmol/L (135-145); TOTAL PROTEIN 7.7 g/dL (6.7-8.2); TRIGLYCERIDES 57 mg/dL; VLDL CHOLESTEROL 11 mg/dL
[2021-09-11 18:45] LABS: THYROID STIMULATING HORMONE 0.93 uIU/mL (0.34-5.60)
[2021-09-11 18:57] LABS: FOLATE 15.42 ng/mL (5.90 - >24.8)
[2021-09-11 20:05] LABS: ESTIMATED AVERAGE GLUCOSE 108 mg/dL (70-100); HEMOGLOBIN A1c% 5.4 % (4.27-6.07)
== END 2021-09-11 23:59 | disposition home or self-care (01) ==
LOC: LAB.WCP 10:23
PROVIDERS: ATTEND Nurse Practitioner
DX: I10 Essential (primary) hypertension (principal); Z13.220 Encounter for screening for lipoid disorders; F10.10 Alcohol abuse, uncomplicated; R53.83 Other fatigue; R73.9 Hyperglycemia, unspecified
CPT/HCPCS: 36415; 80053; 80061; 81001; 82607; 82746; 83036; 83721; 84443; 85025; 87086

== ENCOUNTER 2021-10-09 14:00 | Outpatient (CLI) | payer MEDICAID ==
--- NOTE | 2021-10-09 13:46 | XRAY Report ---
PROCEDURE: Knee 4 View LT INDICATIONS: LEFT KNEE PAIN TECHNIQUE: 3 views of the left knee(s) were acquired. AP view of the bilateral knees. COMPARISON: None. FINDINGS: BONES/JOINT: No acute, displaced fracture or dislocation. No substantial suprapatellar joint effusio n. Mild joint space narrowing and osteophytosis of the tricompartment compartments. SOFT TISSUES: No significant abnormality. IMPRESSION: 1.No acute osseous abnormality. Reviewed by: Jatin Gunter MD on 10/09/2021 1:45 PM PST Approved by: Jatin Gunter MD on 10/09/2021 1:45 PM PST Station ID: [id number]
== END 2021-10-09 14:01 | disposition home or self-care (01) ==
LOC: DI.WOS 14:00
PROVIDERS: ATTEND Physician Assistant
DX: M25.562 Pain in left knee (principal)

== ENCOUNTER 2021-11-02 13:16 | Outpatient (CLI) | payer MEDICAID ==
--- NOTE | 2021-11-02 16:51 | XRAY Report ---
PROCEDURE: Foot 3 View RT INDICATIONS: RIGHT FOOT PAIN TECHNIQUE: 3 views of the foot were acquired. COMPARISON: None FINDINGS: Bones: No acute fractures or dislocations. Healed fourth metacarpal head/neck junction fracture. Ca lcaneal spurring. No suspicious bony lesions. Soft tissues: No tibiotalar joint effusion. Achilles tendon appears normal. IMPRESSION: No acute fracture. No osseous lesion. If symptoms and/or clinical suspicion for pathology continue, f urther assessment with repeat plain films, or advanced imaging (e.g., CT, MRI, or bone scan) is recom mended for further assessment. Reviewed by: Ary Miller MD on 11/02/2021 4:49 PM PST Approved by: Ary Miller MD on 11/02/2021 4:49 PM PST Station ID: [id number]
== END 2021-11-02 13:17 | disposition home or self-care (01) ==
LOC: DI.WOS 13:16
PROVIDERS: ATTEND Physician Assistant
DX: M79.671 Pain in right foot (principal)

== ENCOUNTER 2022-02-01 14:11 | Outpatient (CLI) | payer MEDICAID ==
[2022-02-01 15:03] LABS: THYROID STIMULATING HORMONE 0.76 uIU/mL (0.34-5.60)
[2022-02-01 15:05] LABS: FREE T4 (FREE THYROXINE) 0.67 ng/dL (0.58-1.64)
[2022-02-01 15:14] LABS: FOLATE 17.61 ng/mL (5.90 - >24.8)
--- NOTE | 2022-02-06 05:57 | XRAY Report ---
PROCEDURE: Lumbar Spine 2 View INDICATIONS: BACK PAIN, LUMBAR TECHNIQUE: 2 views of the lumbar spine were acquired. COMPARISON: None. FINDINGS: Bones: 5 [id number] vertebrae are present. There is normal bony alignment. No vertebral body compression fractures. No suspicious bony lesions. Mild degenerative changes are present at L5-S1 i ncluding intervertebral disc space narrowing, facet sclerosis and endplate sclerosis. Soft tissues: Overlying bowel gas pattern is normal. Scattered atheromatous calcifications are prese nt throughout the abdominal aorta. IMPRESSION: Mild degenerative change. Mild aortic atherosclerosis. Reviewed by: Liana Sharif MD on 02/01/2022 3:49 PM PDT Approved by: Liana Sharif MD on 02/01/2022 3:49 PM PDT Station ID: [id number]
--- NOTE | 2022-02-06 05:57 | XRAY Report ---
PROCEDURE: Hip w/Pelvis 2-3V RT INDICATIONS: PAIN IN RIGHT HIP JOINT TECHNIQUE: AP pelvis with lateral view(s) of the hip(s). COMPARISON: None. FINDINGS: Bones: No fractures or dislocations. Pelvic ring appears intact. No suspicious bony lesions. Ther e is mild bilateral hip joint space narrowing. Soft tissues: The visualized bowel gas pattern is normal. No suspicious soft tissue calcifications. IMPRESSION: Bilateral hip osteoarthritis. Reviewed by: Liana Sharif MD on 02/01/2022 3:50 PM PDT Approved by: Liana Sharif MD on 02/01/2022 3:50 PM PDT Station ID: [id number]
== END 2022-02-01 14:12 | disposition home or self-care (01) ==
LOC: DI 14:11
PROVIDERS: ATTEND Nurse Practitioner
DX: M47.817 Spondylosis without myelopathy or radiculopathy, lumbosacral region (principal); M16.0 Bilateral primary osteoarthritis of hip; I70.0 Atherosclerosis of aorta; R53.83 Other fatigue; K70.30 Alcoholic cirrhosis of liver without ascites; E03.9 Hypothyroidism, unspecified; L65.9 Nonscarring hair loss, unspecified
CPT/HCPCS: 36415; 82607; 82746; 84439; 84443

== ENCOUNTER 2022-02-28 08:13 | Outpatient (CLI) | payer MEDICAID ==
--- NOTE | 2022-02-28 10:36 | Ultrasound Report ---
PROCEDURE: Abdomen Limited INDICATIONS: ALCOHOLIC CIRRHOSIS TECHNIQUE: Real-time scanning was performed of the abdominal and retroperitoneal organs, with image documentatio n. COMPARISON: Ultrasound 11/25/2020. FINDINGS: Liver: Normal in size. Coarsened and heterogeneous echotexture. No focal lesion is identified. The po rtal vein demonstrates hepatopedal flow. Gallbladder: Absent. Biliary ducts: Intrahepatic bile ducts are non-dilated. Extrahepatic bile duct caliber measures 4 m m. Normal is 6-7 mm or less in diameter, or 10 mm or less post-cholecystectomy. Pancreas: Visualized portions of the pancreas are sonographically normal. Tail was not seen. Right kidney: Measures 12.3 cm. Cortex 1.3 cm. No hydronephrosis. No mass. IMPRESSION: 1. Coarsened and heterogeneous hepatic echotexture. Findings suggesting cirrhosis. 2. No focal hepatic lesion is identified. Consider follow-up HCC screening with cross-sectional imaging MRI or CT. Reviewed by: Afshin Solo MD on 02/28/2022 10:35 AM PDT Approved by: Afshin Solo MD on 02/28/2022 10:35 AM PDT Station ID: [id number]
== END 2022-02-28 08:14 | disposition home or self-care (01) ==
LOC: DI 08:13
PROVIDERS: ATTEND Nurse Practitioner
DX: K70.30 Alcoholic cirrhosis of liver without ascites (principal)

== ENCOUNTER 2023-02-01 09:45 | Outpatient (CLI) | payer MEDICAID ==
[2023-02-01 09:58] LABS: BASOPHILS % (AUTO) 0.3 %; EOSINOPHILS # (AUTO) 0.1 10^3/uL (0.0-0.7); EOSINOPHILS % (AUTO) 1.7 %; HCT - HEMATOCRIT 39.3 % (37.0-47.0); HGB - HEMOGLOBIN 13.1 g/dL (12.0-16.0); LYMPHOCYTES # (AUTO) 0.7 10^3/uL (1.5-3.5); LYMPHOCYTES % (AUTO) 20.5 %; MEAN CORPUSCULAR HEMOGLOBIN 29.4 pg (27.0-31.0); MEAN CORPUSCULAR HGB CONC 33.3 g/dL (32.0-36.0); MEAN CORPUSCULAR VOLUME 88.1 fL (81.0-99.0); MEAN PLATELET VOLUME 9.3 fL (7.9-10.8); MONOCYTES # (AUTO) 0.4 10^3/uL (0.0-1.0); MONOCYTES % (AUTO) 11.4 %; NEUTROPHILS # (AUTO) 2.3 10^3/uL (1.5-6.6); NEUTROPHILS % (AUTO) 65.2 %; PLT - PLATELET COUNT 160 10^3/uL (130-450); RED BLOOD COUNT 4.46 10^6/uL (4.20-5.40); RED CELL DISTRIBUTION WIDTH 13.8 % (12.0-15.0); WHITE BLOOD COUNT 3.5 x10^3/uL (4.8-10.8)
[2023-02-01 10:15] LABS: ALBUMIN 3.9 g/dL (3.2-5.5); ALBUMIN/GLOBULIN RATIO 1.1 (1.0-2.2); ALKALINE PHOSPHATASE 84 IU/L (42-121); ALT ALANINE AMINOTRANSFERASE 15 IU/L (10-60); AST ASPARTATE AMINOTRANSFERASE 19 IU/L (10-42); BILIRUBIN,TOTAL 0.7 mg/dL (0.2-1.0); BUN - BLOOD UREA NITROGEN 10 mg/dL (6-20); CALCIUM 9.4 mg/dL (8.5-10.3); CARBON DIOXIDE - CO2 26 mmol/L (21-32); CHLORIDE 95 mmol/L (101-111); CHOL/HDL RATIO 2.2 (<4.4); CHOLESTEROL 178 mg/dL; CREATININE 0.6 mg/dL (0.4-1.0); GFR - MDRD 105 (>89); GLUCOSE 96 mg/dL (70-100); HDL CHOLESTEROL 80 mg/dL; LDL CHOLESTEROL,CALCULATED 88 mg/dL; LDL/HDL RATIO 1.1 (<4.4); POTASSIUM 3.9 mmol/L (3.5-5.0); SODIUM 130 mmol/L (135-145); TOTAL PROTEIN 7.5 g/dL (6.7-8.2); TRIGLYCERIDES 48 mg/dL; VLDL CHOLESTEROL 10 mg/dL
[2023-02-01 10:27] LABS: THYROID STIMULATING HORMONE 0.94 uIU/mL (0.34-5.60)
== END 2023-02-01 09:46 | disposition home or self-care (01) ==
LOC: LAB 09:45
PROVIDERS: ATTEND Nurse Practitioner
DX: I10 Essential (primary) hypertension (principal); Z13.220 Encounter for screening for lipoid disorders; E03.9 Hypothyroidism, unspecified
CPT/HCPCS: 36415; 80053; 80061; 83721; 84443; 85025

== ENCOUNTER 2023-02-11 14:43 | Emergency (ER) | payer MEDICAID ==
--- NOTE | 2023-02-11 15:22 | ED Physician Documentation ---
History of Present Illness - Stated complaint Stated Complaint: RT FOOT SWOLLEN - Chief complaint Chief Complaint: Ext Problem - Additonal information Additional information: 52-year-old female who has a history of cirrhosis presents to the emergency department for evaluation of acute on chronic swelling to the bilateral lower extremities. Right greater than left. She has had no recent fevers. No travel. Does endorse some mild pain in the right posterior calf. Patient states she has had similar swelling in the lower extremities similar with infection. She denies that she is missing any of her meds especially her diuretics. She does see her PCP in a few days and is going to request referral to a drawbridge tender. Patient reports she has not drank for many many years now. 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 : None HEENT: None Musculoskeletal: None, Chronic back pain Derm: None - Past Surgical History Past Surgical History: No General: Other /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: Hysterectomy - Present Medications Home Medications: Ambulatory Orders Medication Instructions Recorded Confirmed Spironolactone 200 mg PO DAILY 06/27/18 12/02/20 Fluoxetine HCl [Prozac] 40 mg PO DAILY 04/03/20 12/02/20 Furosemide [Lasix] 40 mg PO DAILY 04/03/20 12/02/20 buPROPion [Wellbutrin Xl] 0 mg DAILY 12/02/20 12/02/20 Ibuprofen [Motrin] 800 mg PO Q8H PRN #30 tablet 05/24/22 cephALEXin [Keflex] 500 mg PO Q6H #28 cap 02/11/23 - Allergies Allergies/Adverse Reactions: Allergies Allergy/AdvReac Type Severity Reaction Status Date / Time No Known Drug Allergies Allergy Verified 02/11/23 14:49 - Social History Does the pt smoke?: No Smoking Status: Never smoker Does the pt drink ETOH?: Yes Does the pt have substance abuse?: No - Immunizations Immunizations are current?: Yes - POLST Patient has POLST: No PD ED PE NORMAL - General General: Alert and oriented X 3, No acute distress, Well developed/nourished - HEENT HEENT: Atraumatic - Neck Neck: Supple, no meningeal sign - Cardiac Cardiac: RRR, No murmur - Respiratory Respiratory: No respiratory distress, Clear bilaterally - Abdomen Abdomen: Normal bowel sounds, Soft. No: Non tender (Palpable ascites noted) - Derm Derm: Normal color, Warm and dry, No rash - Extremities Extremities: Other (Bilateral lower extremity swelling 1+ in the left leg 3+ in the right leg. Mild posterior calf pain tenderness. 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 2-12 intact Eye Opening: Spontaneous Motor: Obeys Commands Verbal: Oriented GCS Score: 15 Results - Vitals Vitals: Vital Signs - 24 hr 02/11/23 02/11/23 14:47 16:00 Temperature 36.9 C Heart Rate 97 86 Respiratory 16 18 Rate Blood Pressure 141/69 H 120/53 L O2 Saturation 96 96 Oxygen O2 Source Room air - Labs Labs: Laboratory Tests 02/11/23 02/11/23 02/11/23 15:27 15:27 15:27 WBC 6.7 RBC 3.95 L Hgb 11.6 L Hct 35.7 L MCV 90.4 MCH 29.4 MCHC 32.5 RDW 14.1 Plt Count 119 L MPV 9.3 Neut # (Auto) 5.4 Lymph # (Auto) 0.6 L [place] # (Auto) 0.7 Eos # (Auto) 0.1 Baso # (Auto) 0.0 Absolute Nucleated RBC 0.00 Nucleated RBC % 0.0 PT 13.5 H INR 1.2 Sodium 134 L Potassium 3.2 L Chloride 95 L Carbon Dioxide 29 Anion Gap 10.0 BUN 10 Creatinine 0.7 Estimated GFR (MDRD) 88 L Glucose 140 H Calcium 8.8 Total Bilirubin 0.8 AST 33 ALT 19 Alkaline Phosphatase 111 Total Protein 7.0 Albumin 3.6 Globulin 3.4 Albumin/Globulin Ratio 1.1 Lipase 28 - Rads (name of study) right leg US Relevant Findings:: Other (Per dairy manufacturing technologist negative for deep vein thrombus.) PD Medical Decision Making - ED course Complexity details: reviewed results, re-evaluated patient, considered differential, d/w patient ED course: 52-year-old female who has a history of alcoholic cirrhosis presents to the emergency department for evaluation of bilateral lower extremity swelling though right greater than left. She is also developed some redness induration and erythema on the dorsum of both her feet. She did have some mild posterior calf pain tenderness. Clinically I was suspicious for worsening cirrhosis, heart failure, cellulitis, DVT or peripheral vascular disease. I did obtain a right leg ultrasound which was interpreted as negative for deep vein thrombosis by the Technologist. Also obtained a CBC, electrolytes, PT/INR. Per my interpretation no acute worrisome findings. She has preserved renal and liver function. Clinically the patient does not appear to have congestive heart failure. She has begun to develop a palpable ascites on her abdomen though its not tense, tender nor does she have a fever therefore paracentesis was deferred today. The patient is scheduled to see her PCP in follow-up in several days. I am making the recommendation that she double her dose of Lasix for the next 4 days as well as begin to take Keflex for what may be an early cellulitis. I am advising the patient to discuss this ED visit closely with her PCP. She would benefit from referral to a drawbridge tender or GI doctor for longer-term management of her cirrhosis. The usual emergent return precautions were discussed for worsening symptoms Departure - Departure Disposition: 01 Home, Self Care Clinical Impression: Cellulitis of right leg, History of cirrhosis Ascites Qualifiers: Ascites type: due to alcoholic cirrhosis Qualified Code(s): K70.31 - Alcoholic cirrhosis of liver with ascites Condition: Stable Record reviewed to determine appropriate education?: Yes Follow-Up: Leonor Grover ARNP [Primary Care Provider] - Prescriptions: cephALEXin [Keflex] 500 mg PO Q6H #28 cap Comments: Cass came to the emergency department today because you have been having swelling in both your lower legs your right greater than your left. You also have some redness developing on both feet. Clinically this could be early cellulitis and for this I Heidi start you on Keflex which she will take 4 times a day for the next week. However I suspect that the increased swelling is due to cirrhosis that is worsening. You have begun to develop some ascites. When you see your primary care provider you do need to get a referral to hepatology or GI. These are the doctors That we will manage cirrhosis in the long-term. They can also discuss with you when it would be appropriate to drain your ascites though clinically is not indicated today. For the next several days while you are taking your Keflex I would like you to elevate your legs as much as possible. I would also like you to double the dose of Lasix that you are taking for the next 4 days only. If you find that despite this you are having worsening symptoms, develop any chest pain or shortness of air or have fevers then please return immediately to the ER for repeat evaluation
[2023-02-11 15:32] LABS: BASOPHILS % (AUTO) 0.1 %; EOSINOPHILS # (AUTO) 0.1 10^3/uL (0.0-0.7); EOSINOPHILS % (AUTO) 1.2 %; HCT - HEMATOCRIT 35.7 % (37.0-47.0); HGB - HEMOGLOBIN 11.6 g/dL (12.0-16.0); LYMPHOCYTES # (AUTO) 0.6 10^3/uL (1.5-3.5); LYMPHOCYTES % (AUTO) 8.4 %; MEAN CORPUSCULAR HEMOGLOBIN 29.4 pg (27.0-31.0); MEAN CORPUSCULAR HGB CONC 32.5 g/dL (32.0-36.0); MEAN CORPUSCULAR VOLUME 90.4 fL (81.0-99.0); MEAN PLATELET VOLUME 9.3 fL (7.9-10.8); MONOCYTES # (AUTO) 0.7 10^3/uL (0.0-1.0); MONOCYTES % (AUTO) 9.7 %; NEUTROPHILS # (AUTO) 5.4 10^3/uL (1.5-6.6); NEUTROPHILS % (AUTO) 80.2 %; PLT - PLATELET COUNT 119 10^3/uL (130-450); RED BLOOD COUNT 3.95 10^6/uL (4.20-5.40); RED CELL DISTRIBUTION WIDTH 14.1 % (12.0-15.0); WHITE BLOOD COUNT 6.7 x10^3/uL (4.8-10.8)
[2023-02-11 15:43] LABS: INR 1.2 (0.8-1.2); PT - PROTHROMBIN TIME 13.5 secs (9.9-12.6)
[2023-02-11 15:44] LABS: ALBUMIN 3.6 g/dL (3.2-5.5); ALBUMIN/GLOBULIN RATIO 1.1 (1.0-2.2); BILIRUBIN,TOTAL 0.8 mg/dL (0.2-1.0); CALCIUM 8.8 mg/dL (8.5-10.3); CREATININE 0.7 mg/dL (0.4-1.0); POTASSIUM 3.2 mmol/L (3.5-5.0)
--- NOTE | 2023-02-11 17:17 | Ultrasound Report ---
PROCEDURE: Duplex Ext Veins Right INDICATIONS: r/o DVT right leg TECHNIQUE: Real-time imaging, as well as color and pulse Doppler interrogation, were performed of the lower extr emity deep veins from the inguinal ligament to the popliteal fossa. COMPARISON: None. FINDINGS: The deep veins are normally compressible, and free of intraluminal thrombus. Color and pu lse Doppler demonstrate normal phasic intraluminal flow. There is normal augmentation response to di stal compression maneuver. IMPRESSION: No evidence of DVT in visualized right lower extremity veins. Soft tissue edema in right lower leg. Reviewed by: Les Zapata MD on 02/11/2023 4:15 PM KAREN Approved by: Les Zapata MD on 02/11/2023 4:15 PM AKDELIO Station ID: [id number]
[2023-02-11 17:50] VITALS: BP 114/60
== END 2023-02-11 17:53 | disposition home or self-care (01) ==
LOC: ED 14:43
DX: L03.115 Cellulitis of right lower limb (principal); K70.31 Alcoholic cirrhosis of liver with ascites; J44.9 Chronic obstructive pulmonary disease, unspecified; E03.9 Hypothyroidism, unspecified; Z79.899 Other long term (current) drug therapy
CPT/HCPCS: 36415; 80053; 83690; 85025; 85610; 99284

== ENCOUNTER 2023-02-18 17:50 | Emergency (ER) | payer MEDICAID ==
[2023-02-18] MEDS ORDERED: cefTRIAXone 1 GM VIAL IVP STA (19:34)
[2023-02-18] MEDS ORDERED: CLINDAMYCIN 150 MG CAPSULE PO STA (19:34)
[2023-02-18] MEDS ORDERED: LORazepam 2 MG/ML VIAL IVP STA (19:54)
[2023-02-18] MEDS ORDERED: KETOROLAC 30 MG/ML VIAL IVP STA (19:54)
--- NOTE | 2023-02-18 20:17 | ED Physician Documentation ---
History of Present Illness - Stated complaint Stated Complaint: R FOOT PX - Chief complaint Chief Complaint: Wound - History obtained from History obtained from: Patient - History of Present Illness Timing: How many weeks ago (1) Pain level max: 8 Pain level now: 8 - Additonal information Additional information: Patient is a 52-year-old female who presents to the emergency department with right lower extremity redness and pain, recently diagnosed with cellulitis and placed on Keflex. She states that she has not improved over the past week. No fevers. No chills. She has pain with walking. She is on Suboxone for pain at home. 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: Hysterectomy - Present Medications Home Medications: Ambulatory Orders Medication Instructions Recorded Confirmed Spironolactone 200 mg PO DAILY 06/27/18 12/02/20 Fluoxetine HCl [Prozac] 40 mg PO DAILY 04/03/20 12/02/20 Furosemide [Lasix] 40 mg PO DAILY 04/03/20 12/02/20 buPROPion [Wellbutrin Xl] 0 mg DAILY 12/02/20 12/02/20 Ibuprofen [Motrin] 800 mg PO Q8H PRN #30 tablet 05/24/22 cephALEXin [Keflex] 500 mg PO Q6H #28 cap 02/11/23 clindamycin HCL [Cleocin HCl] 300 mg PO Q6H #40 cap 02/18/23 - Allergies Allergies/Adverse Reactions: Allergies Allergy/AdvReac Type Severity Reaction Status Date / Time No Known Drug Allergies Allergy Verified 02/18/23 18:00 - Social History Does the pt smoke?: No Smoking Status: Never smoker Does the pt drink ETOH?: Yes Does the pt have substance abuse?: No - Immunizations Immunizations are current?: Yes - POLST Patient has POLST: No PD ED PE NORMAL - Vitals Vital signs reviewed: Yes - General General: Alert and oriented X 3, No acute distress - HEENT HEENT: Moist mucous membranes - Cardiac Cardiac: RRR - Respiratory Respiratory: No respiratory distress - Abdomen Abdomen: Soft, Non tender, Non distended - Derm Derm: Warm and dry - Extremities Extremities: Other (R ankle - soft tissue swelling and erythema to the dorsum of the R foot and lower R leg. No abscess. no drainage. no joint pain. ) - Neuro Neuro: Alert and oriented X 3 - Psych Psych: Normal mood, Normal affect Results - Vitals Vitals: Vital Signs - 24 hr 02/18/23 02/18/23 02/18/23 17:55 20:08 20:28 Temperature 36 C L 36.9 C Heart Rate 89 77 74 Respiratory 16 18 16 Rate Blood Pressure 128/61 120/63 126/61 O2 Saturation 97 98 96 Oxygen O2 Source Room air PD Medical Decision Making - ED course Complexity details: considered differential, d/w patient ED course: Patient with ongoing right lower extremity cellulitis. Given IV Rocephin and will place on clindamycin for home. She had only been on Keflex. We will have her follow-up closely with her doctor to ensure resolution. No fevers. No chills. No evidence of sepsis. No evidence of osteomyelitis or septic joint. Patient is well-appearing, nontoxic. Patient counseled regarding signs and symptoms for which I believe and urgent re-evaluation would be necessary. Patient with good understanding of and agreement to plan and is comfortable going home at this time This document was made in part using voice recognition software. While efforts are made to proofread this document, sound alike and grammatical errors may oc cur. Departure - Departure Disposition: 01 Home, Self Care Clinical Impression: Cellulitis of right leg Cellulitis Qualifiers: Site of cellulitis: unspecified site Qualified Code(s): L03.90 - Cellulitis, unspecified Condition: Good Instructions: ED Infec Skin Cellulitis Follow-Up: Leonor Grover ARNP [Primary Care Provider] - Within 3 Days Prescriptions: clindamycin HCL [Cleocin HCl] 300 mg PO Q6H #40 cap Comments: Your prescription was sent to [facility] in [place]. Please follow-up with your doctor in 3 days for a wound check or you can go to one of the walk-in clinics to have your wound rechecked. You were given a dose of IV and oral antibiotics tonight. Please take all of the new antibiotics until gone. If you are not improving in the next 24 hours, please return for repeat evaluation. Discharge Date/Time: 02/18/23 20:29
[2023-02-18 20:30] VITALS: BP 126/61
== END 2023-02-18 20:29 | disposition home or self-care (01) ==
LOC: ED 17:50
DX: L03.115 Cellulitis of right lower limb (principal)
CPT/HCPCS: 36415; 96374; 96375; 99283; A9270; J2060

== ENCOUNTER 2023-03-02 12:35 | Outpatient (CLI) | payer MEDICAID ==
[2023-03-02 13:03] LABS: BASOPHILS % (AUTO) 0.4 %; EOSINOPHILS # (AUTO) 0.1 10^3/uL (0.0-0.7); EOSINOPHILS % (AUTO) 2.4 %; HGB - HEMOGLOBIN 12.1 g/dL (12.0-16.0); LYMPHOCYTES % (AUTO) 22.5 %; MEAN CORPUSCULAR HEMOGLOBIN 28.8 pg (27.0-31.0); MEAN CORPUSCULAR HGB CONC 32.7 g/dL (32.0-36.0); MEAN CORPUSCULAR VOLUME 88.1 fL (81.0-99.0); MEAN PLATELET VOLUME 9.4 fL (7.9-10.8); MONOCYTES # (AUTO) 0.5 10^3/uL (0.0-1.0); MONOCYTES % (AUTO) 11.2 %; NEUTROPHILS # (AUTO) 2.9 10^3/uL (1.5-6.6); NEUTROPHILS % (AUTO) 63.1 %; PLT - PLATELET COUNT 219 10^3/uL (130-450); RED CELL DISTRIBUTION WIDTH 14.4 % (12.0-15.0); WHITE BLOOD COUNT 4.5 x10^3/uL (4.8-10.8)
[2023-03-02 13:19] LABS: ALBUMIN 3.2 g/dL (3.2-5.5); ALBUMIN/GLOBULIN RATIO 0.8 (1.0-2.2); BILIRUBIN,TOTAL 0.7 mg/dL (0.2-1.0); CALCIUM 8.3 mg/dL (8.5-10.3); CREATININE 0.5 mg/dL (0.4-1.0)
[2023-03-02 13:34] LABS: THYROID STIMULATING HORMONE 0.54 uIU/mL (0.34-5.60)
[2023-03-02 21:28] LABS: ESTIMATED AVERAGE GLUCOSE 97 mg/dL (70-100)
== END 2023-03-02 12:36 | disposition home or self-care (01) ==
LOC: LAB 12:35
PROVIDERS: ATTEND Nurse Practitioner
DX: I10 Essential (primary) hypertension (principal); F10.10 Alcohol abuse, uncomplicated; R73.9 Hyperglycemia, unspecified; F33.1 Major depressive disorder, recurrent, moderate; E03.9 Hypothyroidism, unspecified
CPT/HCPCS: 36415; 80053; 80320; 81599; 83036; 84443; 85025

== ENCOUNTER 2023-03-28 21:18 | Emergency (ER) | payer MEDICAID ==
[2023-03-28] MEDS ORDERED: ceFAZolin 1 GM VIAL IVP STA (21:41)
[2023-03-28] MEDS ORDERED: HYDROmorphone 1 MG/ML CARPUJECT IVP STA (21:41)
--- NOTE | 2023-03-28 21:42 | ED Physician Documentation ---
History of Present Illness - Stated complaint Stated Complaint: LEGS SWOLLEN - Chief complaint Chief Complaint: Ext Problem - History obtained from History obtained from: Patient - Additonal information Additional information: 52-year-old woman with alcoholic cirrhosis presents with painful swelling of the right greater than left legs. Recent bout of cellulitis and pain and swelling recurred yesterday. She has been driving a lot. No shortness of breath. No fevers. She is currently on Lasix, she already upped the dose to 80 mg today and Aldactone 100 mg. 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: Hysterectomy - Present Medications Home Medications: Ambulatory Orders Medication Instructions Recorded Confirmed Spironolactone 200 mg PO DAILY 06/27/18 03/28/23 Furosemide [Lasix] 40 mg PO DAILY 04/03/20 03/28/23 Ibuprofen [Motrin] 800 mg PO Q8H PRN #30 tablet 05/24/22 Gabapentin [Neurontin] 300 mg PO DAILY 03/28/23 03/28/23 OXcarbazepine [Trileptal] 100 mg PO DAILY 03/28/23 03/28/23 cephALEXin [Keflex] 500 mg PO Q6H #28 cap 03/29/23 - Allergies Allergies/Adverse Reactions: Allergies Allergy/AdvReac Type Severity Reaction Status Date / Time No Known Drug Allergies Allergy Verified 02/18/23 18:00 - Social History Does the pt smoke?: No Smoking Status: Never smoker Does the pt drink ETOH?: Yes Does the pt have substance abuse?: No - Immunizations Immunizations are current?: Yes - POLST Patient has POLST: No PD ED PE NORMAL - Vitals Vital signs reviewed: Yes - General General: Alert and oriented X 3, No acute distress - Cardiac Cardiac: RRR, No murmur - Respiratory Respiratory: No respiratory distress, Clear bilaterally - Abdomen Abdomen: Non tender, Other (With ascites) - Back Back: No CVA TTP, No spinal TTP - Derm Derm: Normal color, Warm and dry - Extremities Extremities: Other (3+ pitting pedal edema of the right leg and 2+ pitting pedal edema of the left leg. There is cellulitis from the ankle of the right up to just above the knee.) - Neuro Neuro: Alert and oriented X 3 Eye Opening: Spontaneous Motor: Obeys Commands Verbal: Oriented GCS Score: 15 Results - Vitals Vitals: Vital Signs - 24 hr 03/28/23 03/28/23 03/28/23 21:20 22:22 22:46 Temperature 36.2 C L Heart Rate 70 63 59 L Respiratory 19 17 15 Rate Blood Pressure 136/62 H 90/42 L 109/59 L O2 Saturation 100 100 99 03/28/23 03/29/23 03/29/23 23:38 00:24 00:51 Temperature Heart Rate 62 65 63 Respiratory 16 16 16 Rate Blood Pressure 98/45 L 101/51 L 114/51 L O2 Saturation 99 100 99 03/29/23 01:02 Temperature Heart Rate 65 Respiratory 17 Rate Blood Pressure 113/55 L O2 Saturation 100 Oxygen O2 Source Room air - Labs Labs: Laboratory Tests 03/28/23 03/28/23 03/28/23 21:47 21:47 21:47 WBC 3.2 L RBC 3.94 L Hgb 11.2 L Hct 33.6 L MCV 85.3 MCH 28.4 MCHC 33.3 RDW 13.1 Plt Count 148 MPV 9.8 Neut # (Auto) 1.8 Lymph # (Auto) 0.8 L [place] # (Auto) 0.5 Eos # (Auto) 0.1 Baso # (Auto) 0.0 Absolute Nucleated RBC 0.00 Nucleated RBC % 0.0 PT 13.0 H INR 1.2 Sodium 127 L Potassium 3.8 Chloride 96 L Carbon Dioxide 24 Anion Gap 7.0 BUN 9 Creatinine 0.6 Estimated GFR (MDRD) 105 Glucose 107 H Calcium 8.3 L Total Bilirubin 0.6 AST 27 ALT 12 Alkaline Phosphatase 128 H Total Protein 6.8 Albumin 3.3 Globulin 3.5 Albumin/Globulin Ratio 0.9 L Ethyl Alcohol 26.9 PD Medical Decision Making - ED course ED course: 52-year-old woman presents with right greater than left leg swelling in the setting of cirrhosis and recurrent cellulitis. This does look more like a cellulitis than it does venous stasis. Work-up here in the department shows chronic lymphopenia. Mild elevation of PT/INR. Normal liver enzymes with slightly worse than normal hyponatremia. Positive blood alcohol at 27 and admits to drinking a single beer prior to arrival. She was counseled not to do this given her cirrhosis. In the department she was administered 1 mg of IV Dilaudid and 1 g of IV cefazolin. Ultrasound both legs pending. Departure - Departure Disposition: 01 Home, Self Care Clinical Impression: Alcoholic cirrhosis, Alcohol use, Pedal edema, Cellulitis of right leg Condition: Stable Instructions: Cellulitis Dc, ED Alcohol Abuse Prescriptions: cephALEXin [Keflex] 500 mg PO Q6H #28 cap Comments: There were no diagnostic findings on the ultrasound of your legs; specifically, no evidence of any blood clots. A prescription for cephalexin (antibiotic) has been electronically submitted to the [facility] pharmacy in [place]. Discharge Date/Time: 03/29/23 01:49
[2023-03-28 21:52] LABS: BASOPHILS % (AUTO) 0.6 %; EOSINOPHILS # (AUTO) 0.1 10^3/uL (0.0-0.7); EOSINOPHILS % (AUTO) 2.5 %; HCT - HEMATOCRIT 33.6 % (37.0-47.0); HGB - HEMOGLOBIN 11.2 g/dL (12.0-16.0); LYMPHOCYTES # (AUTO) 0.8 10^3/uL (1.5-3.5); LYMPHOCYTES % (AUTO) 25.2 %; MEAN CORPUSCULAR HEMOGLOBIN 28.4 pg (27.0-31.0); MEAN CORPUSCULAR HGB CONC 33.3 g/dL (32.0-36.0); MEAN CORPUSCULAR VOLUME 85.3 fL (81.0-99.0); MEAN PLATELET VOLUME 9.8 fL (7.9-10.8); MONOCYTES # (AUTO) 0.5 10^3/uL (0.0-1.0); MONOCYTES % (AUTO) 16.5 %; NEUTROPHILS # (AUTO) 1.8 10^3/uL (1.5-6.6); NEUTROPHILS % (AUTO) 54.9 %; PLT - PLATELET COUNT 148 10^3/uL (130-450); RED BLOOD COUNT 3.94 10^6/uL (4.20-5.40); RED CELL DISTRIBUTION WIDTH 13.1 % (12.0-15.0); WHITE BLOOD COUNT 3.2 x10^3/uL (4.8-10.8)
[2023-03-28 22:00] LABS: INR 1.2 (0.8-1.2)
[2023-03-28 22:04] LABS: ALBUMIN 3.3 g/dL (3.2-5.5); ALBUMIN/GLOBULIN RATIO 0.9 (1.0-2.2); BILIRUBIN,TOTAL 0.6 mg/dL (0.2-1.0); CALCIUM 8.3 mg/dL (8.5-10.3); CREATININE 0.6 mg/dL (0.4-1.0); ETOH - ETHANOL 26.9 mg/dL; POTASSIUM 3.8 mmol/L (3.5-5.0); TOTAL PROTEIN 6.8 g/dL (6.7-8.2)
--- NOTE | 2023-03-29 00:03 | Ultrasound Report ---
PROCEDURE: Duplex Ext Veins Bilateral INDICATIONS: N BOB TECHNIQUE: Real-time imaging, as well as color and pulse Doppler interrogation, were performed of the deep veins of both legs from the inguinal ligament to the popliteal fossa. COMPARISON: None FINDINGS: The deep veins are normally compressible, and free of intraluminal thrombus. Color and pu lse Doppler demonstrate normal phasic intravascular flow. There is normal augmentation response to d istal compression maneuver. IMPRESSION: No deep venous thrombosis. Reviewed by: Stephanie Morillo MD on 03/29/2023 12:02 AM PDT Approved by: Stephanie Morillo MD on 03/29/2023 12:02 AM PDT Station ID: [id number]
[2023-03-29] MEDS ORDERED: HYDROmorphone 0.5 MG/0.5 ML SYRINGE IVP STA (01:01)
[2023-03-29 01:05] VITALS: BP 113/55
--- NOTE | 2023-03-29 03:33 | ED Physician Documentation ---
ED Addendum - Addendum Addendum: 03/29/23 03:28 I received signout of care on this patient from Dr. Fuentes; please refer to his note for complete history and physical. At the time of the turnover of care, the only remaining test result that is pending is ultrasound of bilateral lower extremities. Radiologist's interp retation of this study is "no deep venous thrombosis". I discussed this result with the patient. She is in NAD, actually requires gentle tactile combined with verbal stimulus to awaken her from sleep. Part of the discharge plan at the time of turnover of care was to provide a prescription for 1 week of 4 times daily Keflex; in order to transmit the prescription to her pharmacy of choice ([facility]), I cancelled the entry from Dr. Fuentes and reentered the same rx (cephalexin 500mg PO QID x 1 week) and transmitted to [facility]. I was subsequently informed by the ED RN that was discharging patient that the patient is now complaining of recurrence of her pain (for which she was given 1 mg IV Dilaudid earlier in stay) and patient is requesting more pain medication. She is given 0.5 mg IV Dilaudid and then discharged.
== END 2023-03-29 01:49 | disposition home or self-care (01) ==
LOC: ED 21:18
DX: K70.30 Alcoholic cirrhosis of liver without ascites (principal); F10.10 Alcohol abuse, uncomplicated; L03.115 Cellulitis of right lower limb
CPT/HCPCS: 36415; 80053; 80320; 85025; 85610; 93970; 96374; 96375; 96376; 99284; J1170

== ENCOUNTER 2023-04-01 08:36 | Outpatient (CLI) | payer MEDICAID ==
--- NOTE | 2023-04-01 12:33 | Ultrasound Report ---
PROCEDURE: Abdomen Complete INDICATIONS: ABD PAIN, CIRRHOSIS TECHNIQUE: Real-time scanning was performed of the abdominal and retroperitoneal organs, with image documentatio n. COMPARISON: Ultrasound abdomen 02/28/2022 FINDINGS: Liver: The liver is normal in size at 16.5 cm. Coarsened liver echotexture is noted with nodular [place] face, consistent with the provided history of cirrhosis. No focal hepatic mass is seen. Hepatopetal f low is seen in the main portal vein. Gallbladder: Status post cholecystectomy. Biliary ducts: Intrahepatic bile ducts are non-dilated. Extrahepatic bile duct caliber measures 6 m m. Normal is 6-7 mm or less in diameter, or 10 mm or less post-cholecystectomy. Pancreas: Visualized portions of the pancreas are sonographically normal. Spleen: Spleen is mildly enlarged. Left upper quadrant varices are noted near the spleen. Kidneys: Kidneys are normal in size and echotexture. Right kidney measures 12.6 cm long; left kidne y measures 12 point cm long. No hydronephrosis or nephrolithiasis. No solid masses. No complex artur l cystic lesions which require follow-up. Aorta: Visualized aorta is normal in caliber at less than 3 cm. Iliacs: Proximal common iliac arteries are normal in caliber at less than 2.5 cm. IVC: Intrahepatic inferior vena cava is patent. Miscellaneous: No free abdominal fluid. IMPRESSION: 1.Hepatic cirrhosis. No focal hepatic mass identified sonographically. 2.Signs of portal hypertension including splenomegaly and perisplenic varices. No ascites. Hepatopeta l flow is seen in the main portal vein. Reviewed by: Kavon Melo MD on 04/01/2023 12:32 PM PDT Approved by: Kavon Melo MD on 04/01/2023 12:32 PM PDT Station ID: [id number]
--- NOTE | 2023-04-01 12:38 | Ultrasound Report ---
PROCEDURE: Pelvic w/Transvaginal INDICATIONS: PELVIC PAIN TECHNIQUE: Real-time scanning was performed of the pelvic organs, with image documentation. Additional endovagi nal scanning was necessary due to incomplete visualization of the adnexal and endometrial structures by transabdominal scanning. COMPARISON: None. FINDINGS: Uterus: Status post hysterectomy. Ovaries: Status post left oophorectomy. The right ovary is not visualized. No right adnexal mass is seen. Other: No pathologic free abdominal or pelvic fluid. IMPRESSION: Status post hysterectomy and left oophorectomy. Right ovary is not visualized. No suspicious pelvic m ass or acute abnormality is seen sonographically. Reviewed by: Kavon Melo MD on 04/01/2023 12:37 PM PDT Approved by: Kavon Melo MD on 04/01/2023 12:37 PM PDT Station ID: [id number]
== END 2023-04-01 08:37 | disposition home or self-care (01) ==
LOC: DI 08:36
PROVIDERS: ATTEND Nurse Practitioner
DX: R10.9 Unspecified abdominal pain (principal); R10.2 Pelvic and perineal pain; Z90.710 Acquired absence of both cervix and uterus; Z90.721 Acquired absence of ovaries, unilateral; K74.60 Unspecified cirrhosis of liver

== ENCOUNTER 2023-06-25 08:00 | Outpatient (CLI) | payer MEDICAID ==
--- NOTE | 2023-06-25 16:10 | XRAY Report ---
PROCEDURE: Hip BILAT INDICATIONS: BILAT HIP PAIN TECHNIQUE: 3 views of the hip were acquired. COMPARISON: 02/01/2022. FINDINGS: Bones: No fractures or dislocations. Mild symmetric joint space narrowing and marginal spurring. No suspicious bony lesions. Soft tissues: No suspicious soft tissue calcifications or masses. IMPRESSION: No acute bony abnormality. Mild bilateral hip osteoarthritic changes. Reviewed by: Scott Falcon MD on 06/25/2023 4:09 PM PDT Approved by: Scott Falcon MD on 06/25/2023 4:09 PM PDT Station ID: [id number]
== END 2023-06-25 23:59 | disposition home or self-care (01) ==
LOC: DI.WOS 08:00
PROVIDERS: ATTEND Physician Assistant Surgical
DX: M16.0 Bilateral primary osteoarthritis of hip (principal)

== ENCOUNTER 2023-12-17 15:42 | Emergency (ER) | payer MEDICAID ==
--- NOTE | 2023-12-17 16:20 | ED Physician Documentation ---
History of Present Illness - Stated complaint Stated Complaint: CELLULITIS - Chief complaint Chief Complaint: Ext Problem - History obtained from History obtained from: Patient - Additonal information Additional information: 53 yo F patient states she has had onset of bilateral lower extremity swelling right greater than left. She has had prior bouts of this in the past. Now with right leg redness and discomfort. No fevers or chills. She has prior history of DVT she states. She is on Lasix 40 mg daily and has been taking this, no shortness of breath. Review of Systems Constitutional: denies: Fever, Chills Cardiac: reports: Pedal edema, Calf pain. 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 - Present Medications Home Medications: Ambulatory Orders Medication Instructions Recorded Confirmed Spironolactone 200 mg PO DAILY 06/27/18 03/28/23 Furosemide [Lasix] 40 mg PO DAILY 04/03/20 03/28/23 Ibuprofen [Motrin] 800 mg PO Q8H PRN #30 tablet 05/24/22 Gabapentin [Neurontin] 300 mg PO DAILY 03/28/23 03/28/23 OXcarbazepine [Trileptal] 100 mg PO DAILY 03/28/23 03/28/23 cephALEXin [Keflex] 500 mg PO Q6H #28 cap 03/29/23 Furosemide [Lasix] 40 mg PO DAILY #14 tablet 12/17/23 Sulfamethox/Trimeth 800/160 1 each PO BID #14 tablet 12/17/23 [Bactrim Ds 800/160] cephALEXin [Keflex] 500 mg PO Q6H #28 cap 12/17/23 - Allergies Allergies/Adverse Reactions: Allergies Allergy/AdvReac Type Severity Reaction Status Date / Time No Known Drug Allergies Allergy Verified 12/17/23 15:45 - Social History Does the pt smoke?: No Smoking Status: Never smoker Does the pt drink ETOH?: Yes Does the pt have substance abuse?: No - Immunizations Immunizations are current?: Yes - POLST Patient has POLST: No PD ED PE NORMAL - General General: Alert and oriented X 3, No acute distress - HEENT HEENT: Atraumatic - Cardiac Cardiac: RRR, No murmur - Respiratory Respiratory: No respiratory distress, Clear bilaterally - Abdomen Abdomen: Normal bowel sounds, Soft - Extremities Extremities: Other (She has 3+ pitting edema of the right lower extremity, 2+ of left. She has anterior blanching erythema and warmth of the right crockett. pulses and sensation intact. tiny abrasion R great toe, not related to the cellulitic change) Results - Vitals Vitals: Vital Signs - 24 hr 12/17/23 15:45 Temperature 36.8 C Heart Rate 99 Respiratory 16 Rate Blood Pressure 140/70 H O2 Saturation 99 Oxygen O2 Source Room air - Labs Labs: Laboratory Tests 12/17/23 12/17/23 16:18 16:18 WBC 5.9 RBC 4.75 Hgb 13.2 Hct 41.0 MCV 86.3 MCH 27.8 MCHC 32.2 RDW 15.0 Plt Count 177 MPV 9.3 Neut # (Auto) 4.1 Lymph # (Auto) 0.9 L [place] # (Auto) 0.7 Eos # (Auto) 0.1 Baso # (Auto) 0.0 Absolute Nucleated RBC 0.00 Nucleated RBC % 0.0 Sodium 131 L Potassium 3.2 L Chloride 98 L Carbon Dioxide 27 Anion Gap 6.0 BUN 5 L Creatinine 0.5 L Estimated GFR (MDRD) 129 Glucose 110 H Calcium 9.2 Magnesium 1.6 L Total Bilirubin 0.9 AST 20 ALT 10 Alkaline Phosphatase 148 H Total Protein 7.2 Albumin 3.8 Globulin 3.4 Albumin/Globulin Ratio 1.1 Ethyl Alcohol < 10.0 PD Medical Decision Making - ED course Complexity details: reviewed old records, reviewed results, considered differential (She particularly has a lower extremity cellulitis. I do not see any evidence for a necrotizing soft tissue infection will check ultrasound to evaluate for DVT. Otherwise we will give her first dose of IV antibiotics here and then home on p.o.'s. Hemodynamically stable not ill-appearing no signs o) ED course: reviewed labs- nl bun/cr. Low K+- supplemented. Normal WBC She overall is quite acutely well-appearing. Will give her IV antibiotics here supplementary potassium she is stable for outpatient management. My colleague Dr. Tovar will double check the duplex is negative -I anticipate she will be discharged on Keflex, Bactrim and her chronic Lasix. She will try really hard to elevate her legs. Departure - Departure Clinical Impression: Cellulitis, Lower extremity edema, Hypokalemia Instructions: Cellulitis Dc, Hypokalemia Dc Prescriptions: Sulfamethox/Trimeth 800/160 [Bactrim Ds 800/160] 1 each PO BID #14 tablet cephALEXin [Keflex] 500 mg PO Q6H #28 cap Furosemide [Lasix] 40 mg PO DAILY #14 tablet Comments: Elevate your legs is much as you can. Take Keflex and Bactrim for the cellulitis as prescribed. Make sure you are chronically taking your Lasix, though the elevation of your legs in the meantime will help the most, both in terms of the swelling as well as the infection. Return emergency department for increasing pain fever or any other concerns. Forms: PCP List
[2023-12-17 16:22] LABS: BASOPHILS % (AUTO) 0.3 %; EOSINOPHILS # (AUTO) 0.1 10^3/uL (0.0-0.7); EOSINOPHILS % (AUTO) 0.9 %; HGB - HEMOGLOBIN 13.2 g/dL (12.0-16.0); LYMPHOCYTES # (AUTO) 0.9 10^3/uL (1.5-3.5); LYMPHOCYTES % (AUTO) 15.9 %; MEAN CORPUSCULAR HEMOGLOBIN 27.8 pg (27.0-31.0); MEAN CORPUSCULAR HGB CONC 32.2 g/dL (32.0-36.0); MEAN CORPUSCULAR VOLUME 86.3 fL (81.0-99.0); MEAN PLATELET VOLUME 9.3 fL (7.9-10.8); MONOCYTES # (AUTO) 0.7 10^3/uL (0.0-1.0); MONOCYTES % (AUTO) 12.6 %; NEUTROPHILS # (AUTO) 4.1 10^3/uL (1.5-6.6); PLT - PLATELET COUNT 177 10^3/uL (130-450); RED BLOOD COUNT 4.75 10^6/uL (4.20-5.40); WHITE BLOOD COUNT 5.9 x10^3/uL (4.8-10.8)
[2023-12-17 16:36] LABS: ALBUMIN 3.8 g/dL (3.2-5.5); ALBUMIN/GLOBULIN RATIO 1.1 (1.0-2.2); ALKALINE PHOSPHATASE 148 IU/L (42-121); ALT ALANINE AMINOTRANSFERASE 10 IU/L (10-60); AST ASPARTATE AMINOTRANSFERASE 20 IU/L (10-42); BILIRUBIN,TOTAL 0.9 mg/dL (0.2-1.0); BUN - BLOOD UREA NITROGEN 5 mg/dL (6-20); CALCIUM 9.2 mg/dL (8.5-10.3); CARBON DIOXIDE - CO2 27 mmol/L (21-32); CHLORIDE 98 mmol/L (101-111); CREATININE 0.5 mg/dL (0.6-1.3); ETOH - ETHANOL < 10.0 mg/dL; GFR - MDRD 129 (>89); GLUCOSE 110 mg/dL (74-104); MAGNESIUM 1.6 mg/dL (1.7-2.3); POTASSIUM 3.2 mmol/L (3.5-4.5); SODIUM 131 mmol/L (135-145); TOTAL PROTEIN 7.2 g/dL (6.4-8.9)
[2023-12-17] MEDS: cefTRIAXone 1 GM in SODIUM CHLORIDE 0.9% MINIBAG 100 ML IV STA (17:11)
[2023-12-17] MEDS: POTASSIUM CHLORIDE 20 MEQ TABLET PO STA (17:14)
[2023-12-17] MEDS: ACETAMINOPHEN 500 MG TABLET PO STA (17:39)
--- NOTE | 2023-12-17 18:27 | ED Physician Documentation ---
ED Addendum - Addendum Addendum: 12/17/23 18:[address] Rubio at 6 PM shift change pending reevaluation and review of sonography. Sonography was negative for DVT in either leg. On reevaluation patient is comfortable. Requests a pain pill prior to discharge and 5 mg of oxycodone was ordered. Disposition: Discharged home Condition: Stable
[2023-12-17] MEDS: oxyCODONE 5 MG TABLET PO STA (18:38)
[2023-12-17 18:49] VITALS: BP 112/46; O2SAT 98
--- NOTE | 2023-12-17 18:54 | Ultrasound Report ---
PROCEDURE: Duplex Ext Veins Bilateral INDICATIONS: I Oten TECHNIQUE: Real-time imaging, as well as color and pulse Doppler interrogation, were performed of the deep veins of both legs from the inguinal ligament to the popliteal fossa. Attempted visualization of the calf veins was performed. COMPARISON: None FINDINGS: The deep veins are normally compressible, and free of intraluminal thrombus. Color and pu lse Doppler demonstrate normal phasic intravascular flow. There is normal augmentation response to d istal compression maneuver. Suspected bilateral Rowan's cyst. IMPRESSION: No deep venous thrombosis of the visualized lower extremities. Reviewed by: Valentín Lea MD on 12/17/2023 6:53 PM PDT Approved by: Valentín Lea MD on 12/17/2023 6:53 PM PDT Station ID: [id number]
== END 2023-12-17 18:50 | disposition home or self-care (01) ==
LOC: ED 15:42
DX: L03.116 Cellulitis of left lower limb (principal); L03.115 Cellulitis of right lower limb; E87.6 Hypokalemia; R60.0 Localized edema; J44.9 Chronic obstructive pulmonary disease, unspecified; E03.9 Hypothyroidism, unspecified; Z79.899 Other long term (current) drug therapy
CPT/HCPCS: 36415; 80053; 82077; 83735; 85025; 93970; 96374; 99284; A9270

== ENCOUNTER 2023-12-28 13:43 | Outpatient (CLI) | payer MEDICAID ==
--- NOTE | 2023-12-30 08:13 | MRI Report ---
PROCEDURE: Hip RT WO INDICATIONS: R HIP PAIN TECHNIQUE: Noncontrast coronal T1 spin echo and STIR through the bony pelvis. Coronal and axial T2 fast spin ec ho with fat saturation, sagittal T1 spin echo, and oblique axial T2 fast spin echo with fat saturatio n through the hip. COMPARISON: Bilateral hip radiograph dated 06/25/2023, 02/01/2022 and 03/23/2021. FINDINGS: Image quality: Excellent. Bones and joints: Asymmetric moderate right hip joint osteoarthritic changes are seen with near compl ete loss of joint space, extensive subchondral sclerosis and lateral marginal osteophyte formation. T here is geographic area of T2 hyperintense signal involving weightbearing portion of right femoral he ad concerning for avascular necrosis. Mild to moderate left hip joint osteoarthritic changes also see n. No evidence of avascular necrosis is seen in left femoral head. No acute fracture or dislocation T he visualized lower lumbar spine appears normally aligned. Tendons: Low-grade partial-thickness tear involving distal right gluteus medius and minimus tendons a t their insertions on greater trochanter is seen. There is also tendinosis and moderate grade partial -thickness tear involving right hamstring tendon origins at ischial tuberosity with small to moderate amount of surrounding fluid. No definite full-thickness tendon rupture. The iliopsoas tendon appears intact, without adjacent bursal fluid collections. Labrum and cartilage: Diffuse loss of articulating cartilages of the right femoral head is seen with suggestion of subtle superior anterior right hip labral tear at 12 to 1:00 position. The alpha angle of the femur is within normal limits at less than 55 degrees. Soft tissues: There is edema within right obturator externus muscle at the level of right ischial tub erosity. The proximal sciatic neurovascular bundle appears normal adjacent to the hamstring tendons. No free pelvic fluid. Bladder wall thickness is normal. Genitourinary structures and bowel loops a ppear normal where visualized. IMPRESSION: 1. Asymmetric moderate right hip joint osteoarthritis with suggestion of avascular necrosis involving weightbearing portion of right femoral head. Mild to moderate left hip joint osteoarthritis. No evid ence of left-sided avascular necrosis. No acute fracture or dislocation. 2. Low-grade partial-thickness involving right distal gluteus medius and minimus tendons. Moderate gr johnny partial-thickness tear involving right hamstring tendon origins at ischial tuberosity. Low to mod erate grade partial-thickness tear involving right obturator externus muscle at the level right ischi al tuberosity. 3. Suggestion of subtle superior anterior right hip labral tear at 12 to 1:00 position. Reviewed by: Les Zapata MD on 12/30/2023 8:11 AM PDT Approved by: Les Zapata MD on 12/30/2023 8:11 AM PDT Station ID: [id number]
== END 2023-12-28 13:44 | disposition home or self-care (01) ==
LOC: DI 13:43
PROVIDERS: ATTEND Nurse Practitioner
DX: M16.0 Bilateral primary osteoarthritis of hip (principal); S76.011A Strain of muscle, fascia and tendon of right hip, initial encounter

== ENCOUNTER 2024-03-24 16:30 | Outpatient (CLI) | payer MEDICAID ==
[2024-03-24 17:03] LABS: BASOPHILS % (AUTO) 0.2 %; EOSINOPHILS % (AUTO) 0.2 %; LYMPHOCYTES % (AUTO) 22.9 %; MEAN CORPUSCULAR HEMOGLOBIN 29.1 pg (27.0-31.0); MEAN CORPUSCULAR HGB CONC 33.3 g/dL (32.0-36.0); MEAN CORPUSCULAR VOLUME 87.3 fL (81.0-99.0); MEAN PLATELET VOLUME 9.4 fL (7.9-10.8); MONOCYTES # (AUTO) 0.6 10^3/uL (0.0-1.0); MONOCYTES % (AUTO) 13.5 %; NEUTROPHILS # (AUTO) 2.8 10^3/uL (1.5-6.6); PLT - PLATELET COUNT 153 10^3/uL (130-450); RED BLOOD COUNT 4.81 10^6/uL (4.20-5.40); RED CELL DISTRIBUTION WIDTH 14.9 % (12.0-15.0); WHITE BLOOD COUNT 4.5 x10^3/uL (4.8-10.8)
[2024-03-24 17:11] LABS: INR 1.4 (0.8-1.2); PT - PROTHROMBIN TIME 14.8 secs (9.9-12.6)
[2024-03-24 17:28] LABS: ALBUMIN 4.1 g/dL (3.2-5.5); ALBUMIN/GLOBULIN RATIO 1.1 (1.0-2.2); BILIRUBIN,TOTAL 0.7 mg/dL (0.2-1.0); CALCIUM 9.5 mg/dL (8.5-10.3); CREATININE 0.7 mg/dL (0.6-1.3); POTASSIUM 4.3 mmol/L (3.5-4.5); TOTAL PROTEIN 7.8 g/dL (6.4-8.9)
== END 2024-03-24 16:31 | disposition home or self-care (01) ==
LOC: LAB 16:30
PROVIDERS: ATTEND Internal Medicine Gastroenterology
DX: K70.30 Alcoholic cirrhosis of liver without ascites (principal)
CPT/HCPCS: 36415; 80053; 85025; 85610